=== PATIENT | male | born 1940 | race Caucasian/White ===

== ENCOUNTER 2016-08-14 22:13 | Emergency (ER) | payer MEDICARE, OTHER ==
--- NOTE | 2016-08-14 22:22 | EDM.PDOC ---
ED HPI GENERAL MEDICAL PROBLEM - General Chief Complaint: General Stated Complaint: dizziness Time Seen by Provider: 08/14/16 22:19 Source of Information: Reports: Patient - History of Present Illness INITIAL COMMENTS - FREE TEXT/NARRATIVE: HISTORY AND PHYSICAL: History of present illness: []Patient presents via EMS Patient relates he had an episode of dizziness while sitting at the table and then relates that he fell asleep. Thats THE extent of what the patient provides for history His arrived shortly after his arrival to the ER, she states he was taking a breathing treatment at the kitchen table she noted that the machine was running for some time so she went to check on him, he was sleeping at the kitchen table she awoke him he was tearful stating that their son doesn't love him. 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 He is been alert the entire time here in the ER and asymptomatic patient has been ambulatory here in the Er with no dizziness No fever nausea vomiting chills sweats no chest pain shortness breath headache palpitation bowel or urine symptoms no current skin as Review of systems: As per history of present illness and below otherwise all systems reviewed and negative. Past medical history: As per history of present illness and as reviewed below otherwise noncontributory. Surgical history: As per history of present illness and as reviewed below otherwise noncontributory. Social history: No reported history of drug or alcohol abuse. Family history: As per history of present illness and as reviewed below otherwise noncontributory. Physical exam: HEENT: Atraumatic, normocephalic, pupils reactive, negative for conjunctival pallor or scleral icterus, mucous membranes moist, throat clear, neck supple, nontender, trachea midline. Lungs: Clear to auscultation, breath sounds equal bilaterally, chest nontender. Heart: S1S2, regular, negative for clicks, rubs, or JVD. Abdomen: Soft, nondistended, nontender. Negative for masses or hepatosplenomegaly. Negative for costovertebral tenderness. Pelvis: Stable nontender. Genitourinary: Deferred. Rectal: Deferred. Extremities: Atraumatic, negative for cords or calf pain. Neurovascular unremarkable. Neuro: Awake, alert, oriented. Cranial nerves II through XII unremarkable. Cerebellum unremarkable. Motor and sensory unremarkable throughout. Exam nonfocal. Diagnostics: []Lab as below EKG Chest 1 view [employer] Therapeutics: []Normal saline 500 mL bolus Impression: []Dizziness-resolved home O2 non-compliance Chronic history of baseline Definitive disposition and diagnosis as appropriate pending reevaluation and review of above. Back Pain Score (Numeric/FACES): 4 - Related Data Allergies Allergy/AdvReac Type Severity Reaction Status Date / Time Penicillins Allergy Cannot Verified 08/15/13 13:06 Remember ED ROS GENERAL - Review of Systems Review Of Systems: ROS reveals no pertinent complaints other than HPI. ED EXAM, GENERAL - Physical Exam Exam: See Below Course - Vital Signs Last Recorded V/S: Last Vital Signs Temp 36.7 C 08/14/16 23:09 Pulse 102 H 08/14/16 23:09 Resp 18 08/14/16 23:09 BP 121/70 08/14/16 23:09 Pulse Ox 95 08/14/16 23:09 Orthostatic Blood Pressure [ 121/71 Supine] Orthostatic Blood Pressure [ 152/79 Standing] Orthostatic Blood Pressure [ 143/86 Sitting] - Orders/Labs/Meds Orders: Active Orders 24 hr Category Date Time Status EKG 12 Lead [EKG Documentation Completion] [RC] STAT Care 08/14/16 22:18 Active Orthostatic Vital Signs [RC] ASDIRECTED Care 08/14/16 22:22 Active Chest 1V Frontal [CR] Stat Exams 08/14/16 22:18 Taken Head wo Cont [CT] Stat Exams 08/14/16 22:36 Taken Sodium Chloride 0.9% [Normal Saline] 500 ml Med 08/14/16 22:30 Active IV STAT Medication Orders Sodium Chloride (Normal Saline) 500 mls @ 999 mls/hr IV STAT LOGAN Last Admin: 08/14/16 23:22 Dose: 999 mls/hr Labs: Laboratory Tests 08/14/16 08/14/16 08/14/16 Range/Units 22:30 22:30 22:30 WBC 8.86 (4.0-11.0) K/uL RBC 4.99 (4.50-5.90) M/uL Hgb 15.9 (13.0-17.0) g/dL Hct 45.9 (38.0-50.0) % MCV 92.0 (80.0-98.0) fL MCH 31.9 (27.0-32.0) pg MCHC 34.6 (31.0-37.0) g/dL RDW Std Deviation 47.1 (28.0-62.0) fl RDW Coeff of Shereen 14 (11.0-15.0) % Plt Count 244 (150-400) K/uL MPV 9.40 (7.40-12.00) fL Neut % (Auto) 61.8 (48.0-80.0) % Lymph % (Auto) 29.1 (16.0-40.0) % [place] % (Auto) 7.7 (0.0-15.0) % Eos % (Auto) 1.2 (0.0-7.0) % Baso % (Auto) 0.2 (0.0-1.5) % Neut # (Auto) 5.5 (1.4-5.7) K/uL Lymph # (Auto) 2.6 H (0.6-2.4) K/uL [place] # (Auto) 0.7 (0.0-0.8) K/uL Eos # (Auto) 0.1 (0.0-0.7) K/uL Baso # (Auto) 0.0 (0.0-0.1) K/uL Nucleated RBC % 0.0 /100WBC Nucleated RBCs # 0 K/uL INR 1.01 (0.86-1.11) Sodium 140 (136-146) mmol/L Potassium 3.6 (3.5-5.1) mmol/L Chloride 106 (98-110) mmol/L Carbon Dioxide 22 (21-31) mmol/L BUN 15 (6.0-23.0) mg/dL Creatinine 1.3 (0.6-1.5) mg/dL Est Cr Clr Drug Dosing 49.85 mL/min Estimated GFR (MDRD) 54.0 ml/min Glucose 103 (60-110) mg/dL Calcium 8.8 (8.8-10.8) mg/dL Total Bilirubin 0.5 (0.1-1.5) mg/dL AST 34 (5-40) IU/L ALT 43 (8-54) IU/L Alkaline Phosphatase 82 (40-150) Troponin I (0.0-0.29) NG/ML Total Protein 6.7 (6.0-8.0) g/dL Albumin 3.8 (3.4-4.8) g/dL Globulin 2.9 (2.0-3.5) g/dL Albumin/Globulin Ratio 1.3 (1.3-2.8) Urine Color Urine Appearance Urine pH (5.0-8.0) Ur Specific [place] (1.001-1.035) Urine Protein (NEGATIVE) mg/dL Urine Glucose (UA) (NEGATIVE) mg/dL Urine Ketones (NEGATIVE) mg/dL Urine Occult Blood (NEGATIVE) Urine Nitrite (NEGATIVE) Urine Bilirubin (NEGATIVE) Urine Urobilinogen (<2.0) EU/dL Ur Leukocyte Esterase (NEGATIVE) Urine RBC (0-2/HPF) Urine WBC (0-5/HPF) Ur Epithelial Cells (NONE-FEW) Urine Bacteria (NEGATIVE) Ethyl Alcohol mg/dL 08/14/16 08/14/16 08/14/16 Range/Units 22:30 22:30 23:15 WBC (4.0-11.0) K/uL RBC (4.50-5.90) M/uL Hgb (13.0-17.0) g/dL Hct (38.0-50.0) % MCV (80.0-98.0) fL MCH (27.0-32.0) pg MCHC (31.0-37.0) g/dL RDW Std Deviation (28.0-62.0) fl RDW Coeff of Shereen (11.0-15.0) % Plt Count (150-400) K/uL MPV (7.40-12.00) fL Neut % (Auto) (48.0-80.0) % Lymph % (Auto) (16.0-40.0) % [place] % (Auto) (0.0-15.0) % Eos % (Auto) (0.0-7.0) % Baso % (Auto) (0.0-1.5) % Neut # (Auto) (1.4-5.7) K/uL Lymph # (Auto) (0.6-2.4) K/uL [place] # (Auto) (0.0-0.8) K/uL Eos # (Auto) (0.0-0.7) K/uL Baso # (Auto) (0.0-0.1) K/uL Nucleated RBC % /100WBC Nucleated RBCs # K/uL INR (0.86-1.11) Sodium (136-146) mmol/L Potassium (3.5-5.1) mmol/L Chloride (98-110) mmol/L Carbon Dioxide (21-31) mmol/L BUN (6.0-23.0) mg/dL Creatinine (0.6-1.5) mg/dL Est Cr Clr Drug Dosing mL/min Estimated GFR (MDRD) ml/min Glucose (60-110) mg/dL Calcium (8.8-10.8) mg/dL Total Bilirubin (0.1-1.5) mg/dL AST (5-40) IU/L ALT (8-54) IU/L Alkaline Phosphatase (40-150) Troponin I < 0.10 (0.0-0.29) NG/ML Total Protein (6.0-8.0) g/dL Albumin (3.4-4.8) g/dL Globulin (2.0-3.5) g/dL Albumin/Globulin Ratio (1.3-2.8) Urine Color YELLOW Urine Appearance CLEAR Urine pH 6.0 (5.0-8.0) Ur Specific [place] 1.010 (1.001-1.035) Urine Protein NEGATIVE (NEGATIVE) mg/dL Urine Glucose (UA) NEGATIVE (NEGATIVE) mg/dL Urine Ketones TRACE H (NEGATIVE) mg/dL Urine Occult Blood NEGATIVE (NEGATIVE) Urine Nitrite NEGATIVE (NEGATIVE) Urine Bilirubin NEGATIVE (NEGATIVE) Urine Urobilinogen 0.2 (<2.0) EU/dL Ur Leukocyte Esterase NEGATIVE (NEGATIVE) Urine RBC 0-1 (0-2/HPF) Urine WBC 0-1 (0-5/HPF) Ur Epithelial Cells RARE (NONE-FEW) Urine Bacteria RARE (NEGATIVE) Ethyl Alcohol < 10.0 mg/dL Meds: Medications Generic Name Dose Route Start Last Admin Trade Name Freq PRN Reason Stop Dose Admin Sodium Chloride 500 mls @ 999 mls/hr 08/14/16 22:30 08/14/16 23:22 Normal Saline IV 999 mls/hr STAT LOGAN Administration Departure - Departure Time of Disposition: 23:50 Disposition: Home, Self-Care 01 Condition: Good Clinical Impression: Dizziness, COPD (chronic obstructive pulmonary disease) - Discharge Information Forms: ED Department Discharge Additional Instructions: strongly recommend compliance with home Oxygen return if symptoms persist or worsen follow up primary care 2 weeks , sooner as needed - My Orders Last 24 Hours: My Active Orders 08/14/16 22:18 EKG 12 Lead [EKG Documentation Completion] [RC] STAT Chest 1V Frontal [CR] Stat 08/14/16 22:22 Orthostatic Vital Signs [RC] ASDIRECTED 08/14/16 22:30 Sodium Chloride 0.9% [Normal Saline] 500 ml IV STAT 08/14/16 22:36 Head wo Cont [CT] Stat - Assessment/Plan Last 24 Hours: My Active Orders 08/14/16 22:18 EKG 12 Lead [EKG Documentation Completion] [RC] STAT Chest 1V Frontal [CR] Stat 08/14/16 22:22 Orthostatic Vital Signs [RC] ASDIRECTED 08/14/16 22:30 Sodium Chloride 0.9% [Normal Saline] 500 ml IV STAT 08/14/16 22:36 Head wo Cont [CT] Stat
[2016-08-14] MEDS ORDERED: Sodium Chloride 0.9% 500 ML IV SCH (22:30)
[2016-08-15 00:09] VITALS: BP 143/88
--- NOTE | 2016-08-15 13:38 | CT ---
EXAM DATE: 08/14/16 PATIENT'S AGE: 75 Patient: DORIAN MILLER Facility: [place], [place] Site . Site : 1940 Study: CT Head WO CONT [id number]/25/[id number] 11:00:32 PM Ordering Physician: William Lock Final Report: INDICATION: 75-year-old male, dizziness. TECHNIQUE: CT head without i.v. contrast. COMPARISON: None FINDINGS: Mild atrophy with widening of the lateral ventricles and sulci, appropriate for patient`s age. Scattered areas of periventricular and deep white matter low attenuation, indicating chronic microvascular disease. Arthur-white matter differentiation preserved. No hemorrhage or midline shift. No abnormal extra- axial fluid collection. Calvarium intact. Paranasal sinuses and mastoid air cells clear. IMPRESSION: 1. Mild atrophy and chronic microvascular disease. No acute intracranial abnormality. Dictated by Armani Anderson MD @ 08/14/2016 11:18:42 PM Dictated by: Armani Anderson MD @ 08/14/2016 23:19:08 (Electronic Signature) Report Signed by Proxy. [facility]
--- NOTE | 2016-08-15 13:39 | CR ---
EXAM DATE: 08/14/16 PATIENT'S AGE: 75 Patient: DORIAN MILLER Facility: [place], [place] Site . Site : 1940 Study: XRay Chest [id number]/25/2017 11:01:15 PM Ordering Physician: William Lock Final Report: INDICATION: Dizziness. TECHNIQUE: Chest radiograph 1 view COMPARISON: None FINDINGS: Cardiovascular and mediastinum: The heart silhouette is normal in size and morphology. The mediastinum is normal in appearance. Lungs and pleural spaces: Both lungs are unremarkable in appearance. No sign of pleural effusion seen. No pneumothorax is identified. Bones and soft tissues: Suture anchor at the left humeral head. No displaced rib fracture. IMPRESSION: 1. No acute abnormality. Dictated by Armani Anderson MD @ 08/14/2016 11:23:52 PM Dictated by: Armani Anderson MD @ 08/14/2016 23:23:57 (Electronic Signature) Report Signed by Proxy. [facility]
== END 2016-08-15 00:07 | disposition home or self-care (01) ==
LOC: MW.ED 22:13
DX: J44.9 Chronic obstructive pulmonary disease, unspecified (principal); R42 Dizziness and giddiness; Z88.0 Allergy status to penicillin
CPT/HCPCS: 36415; 70450; 71010; 80053; 81001; 84484; 85025; 85610; 93005; 96360; 99285; G0480; J7040; 99284

== ENCOUNTER 2019-11-17 14:51 | Inpatient (IN) | payer MEDICARE, OTHER ==
--- NOTE | 2019-11-17 15:17 | EDM.PDOC ---
ED HPI GENERAL MEDICAL PROBLEM - General Chief Complaint: Respiratory Problem Stated Complaint: COUGH/BODY ACHES/COPD Time Seen by Provider: 11/17/19 14:58 Source of Information: Reports: Patient History Limitations: Reports: No Limitations - History of Present Illness INITIAL COMMENTS - FREE TEXT/NARRATIVE: HISTORY AND PHYSICAL: History of present illness: Patient is a 79-year-old male who presents to the emergency room with complaints of shortness of breath, cough, and body aches. Patient states he has a history of COPD and does require oxygen at home. Over the past few days he feels increased shortness of breath and cough and is concerned that his "COPD is acting up". He states this is worse than usual so he figured he should come for evaluation. He is complaining of body aches, worse in his back. He does have intermittent tingling in bilateral fingertips which has resolved at this time. Patient denies any fever, chills, headache, change in vision, syncope or near syncope. Denies any chest pain, abdominal pain, nausea, vomiting, diarrhea, constipation or dysuria. Patient has been eating and drinking appropriately. Review of systems: As per history of present illness and below otherwise all systems reviewed and negative. Past medical history: As per history of present illness and as reviewed below otherwise noncontributory. Surgical history: As per history of present illness and as reviewed below otherwise noncontributory. Social history: See social history for further information Family history: As per history of present illness and as reviewed below otherwise noncontributory. Physical exam: General: Well developed and well nourished 79-year-old male. Alert and orientated x 3. Nontoxic in appearance and in no acute distress. Vital signs are stable and have been reviewed by me. Nursing notes were reviewed. HEENT: Atraumatic, normocephalic, pupils equal and reactive bilaterally, negative for conjunctival pallor or scleral icterus, mucous membranes moist, TMs normal bilaterally, throat clear, neck supple, nontender, trachea midline. No drooling or trismus noted. No meningeal signs. No hot potato voice noted. Lungs: Diminish throughout to auscultation, breath sounds equal bilaterally, chest nontender. Normal work of breathing, no accessory muscles used. Heart: S1S2, regular rate and rhythm without overt murmur Abdomen: Soft, nondistended, nontender. Negative for masses or hepatosplenomegaly. Negative for costovertebral tenderness. Skin: Intact, warm, dry. No lesions or rashes noted. Hematologic: No petechiae or purpra. Mucosa appropriate color and normal nail bed color and refill. Extremities: Atraumatic, moves all extremities per self without difficulty or deficits, negative for cords or calf pain. Neurovascular unremarkable. Neuro: Awake, alert, oriented. Cranial nerves II through XII unremarkable. Cerebellum unremarkable. Motor and sensory unremarkable throughout. Exam nonfocal. Psychiatric: Mood and affect are appropriate. Normal thought process. Answering questions appropriately. Notes: Patient is COVID positive. Chest x-ray shows no acute findings. D.Dimer is elevated; with do PE study. CT chest shows no findings of PE. Diffuse emphysema changes. Increased density in the right lung base, more focal fibrosis is infectious change. Otherwise nothing acute is appreciated. I have spoken with the patient/caregiver and discussed today's findings, in addition to providing specific details for plan of care. The patient has remained stable throughout the entire ED visit but due to his comorbidities and requiring oxygen we will admit him. Patient was made aware and is agreeable to plan of care. I did speak with Dr. Gordon, hospitalist on-call about this patient. He is agreeable to keeping this patient for further care and management. Diagnostics: CBC, CMP, Troponin, EKG, CXR, COVID, CT chest Therapeutics: Remdisevre, dexamethasone Impression: COVID 19 Plan: Inpatient admission to Med/Surg with telemetry Definitive disposition and diagnosis as appropriate pending reevaluation and review of above. - Related Data Allergies Allergy/AdvReac Type Severity Reaction Status Date / Time Penicillins Allergy Hives Verified 11/17/19 18:53 Home Meds: Home Meds Albuterol Sulfate 1 unit NEB BID 01/29/18 [History] Albuterol Sulfate [Proair Hfa] 2 puff INH ASDIRECTED 01/29/18 [History] Aspirin 81 mg PO DAILY 01/29/18 [History] Carboxymethylcellulose Sodium [Refresh Plus 0.5% Ophth Soln] 1 each .XX TID 01/20 [History] Cholecalciferol (Vitamin D3) [Vitamin D3] 2,000 unit PO DAILY 01/29/18 [History] Cyanocobalamin (Vitamin B-12) [B-12 Dots] 500 mcg PO DAILY 01/29/18 [History] Dorzolamide HCl/Timolol Maleat [Cosopt Eye Drops] 10 ml OP DAILY 01/29/18 [History] Fluticasone Propion/Salmeterol [Advair 250-50 Diskus] 1 puff INH BID 01/29/18 [History] Folic Acid 1 mg PO DAILY 01/29/18 [History] Furosemide [Lasix] 40 mg PO DAILY 01/29/18 [History] Latanoprost/Pf [Latanoprost 0.005% Eye Drop] 7.5 ml OP BEDTIME 01/29/18 [History] Loratadine/Pseudoephedrine [Loratadine-D 12 Hour Tablet] 1 tab PO DAILY 01/29/18 [History] Lutein 20 mg PO DAILY 01/29/18 [History] Multivitamin [Multi-Vitamin Daily] 1 each PO DAILY 01/29/18 [History] Naproxen Sodium [Aleve] 220 mg PO BID 01/29/18 [History] [place]-3 Fatty Acids/DHA/EPA [[place]-3 Softgel] 1 cap PO DAILY 01/29/18 [History] Potassium Chloride [Klor-Con M20] 20 meq PO DAILY 01/29/18 [History] Tiotropium [Spiriva HandiHaler] 18 mcg .XX DAILY 01/29/18 [History] Vitamin E 400 unit PO DAILY 01/29/18 [History] Zolpidem [Ambien] 10 mg PO BEDTIME 01/29/18 [History] guaiFENesin [Mucinex] 600 mg PO DAILY 01/29/18 [History] Past Medical History HEENT History: Reports: Cataract, Impaired Vision Respiratory History: Reports: COPD Genitourinary History: Reports: Prostate Disorder Musculoskeletal History: Reports: Back Pain, Chronic, Other (See Below) Other Musculoskeletal History: sciatica - Infectious Disease History Infectious Disease History: Reports: Chicken Pox, Measles - Past Surgical History HEENT Surgical History: Reports: Cataract Surgery GI Surgical History: Reports: Appendectomy Musculoskeletal Surgical History: Reports: Other (See Below) Other Musculoskeletal Surgeries/Procedures:: back surgery, left shoulder surgery Social & Family History - Caffeine Use Caffeine Use: Reports: Coffee ED ROS GENERAL - Review of Systems Review Of Systems: Comprehensive ROS is negative, except as noted in HPI. ED EXAM, GENERAL - Physical Exam Exam: See Below (See dictation) Course - Vital Signs Last Recorded V/S: Last Vital Signs Temp 98.8 F 11/17/19 18:54 Pulse 99 11/17/19 18:54 Resp 17 11/17/19 18:54 BP 119/71 11/17/19 18:54 Pulse Ox 95 11/17/19 18:54 - Orders/Labs/Meds Orders: Active Orders 24 hr Category Date Time Status CORONAVIRUS COVID-19 PCR PHL Stat Lab 11/17/19 16:15 Received Medication Orders Remdesivir 200 mg/ Sodium (Chloride) 250 mls @ 250 mls/hr IV ONETIME ONE Stop: 11/17/19 19:44 Labs: Laboratory Tests 11/17/19 11/17/19 11/17/19 Range/Units 15:35 15:35 15:35 WBC 4.52 (4.0-11.0) K/uL RBC 5.00 (4.50-5.90) M/uL Hgb 15.5 (13.0-17.0) g/dL Hct 46.6 (38.0-50.0) % MCV 93.2 (80.0-98.0) fL MCH 31.0 (27.0-32.0) pg MCHC 33.3 (31.0-37.0) g/dL RDW Std Deviation 47.3 (28.0-62.0) fl RDW Coeff of Shereen 14 (11.0-15.0) % Plt Count 168 (150-400) K/uL MPV 9.40 (7.40-12.00) fL Neut % (Auto) 67.4 (48.0-80.0) % Lymph % (Auto) 19.5 (16.0-40.0) % [place] % (Auto) 13.1 (0.0-15.0) % Eos % (Auto) 0.0 (0.0-7.0) % Baso % (Auto) 0.0 (0.0-1.5) % Neut # (Auto) 3.1 (1.4-5.7) K/uL Lymph # (Auto) 0.9 (0.6-2.4) K/uL [place] # (Auto) 0.6 (0.0-0.8) K/uL Eos # (Auto) 0.0 (0.0-0.7) K/uL Baso # (Auto) 0.0 (0.0-0.1) K/uL Nucleated RBC % 0.0 /100WBC Nucleated RBCs # 0 K/uL D-Dimer, Quantitative (0.0-0.50) mg/L FEU Lactate (0.20-2.00) mmol/L Sodium 134 L (136-148) mmol/L Potassium 4.1 (3.5-5.1) mmol/L Chloride 99 (98-107) mmol/L Carbon Dioxide 27.6 (21.0-32.0) mmol/L BUN 13 (7.0-18.0) mg/dL Creatinine 1.0 (0.8-1.3) mg/dL Est Cr Clr Drug Dosing 60.88 mL/min Estimated GFR (MDRD) > 60.0 ml/min Glucose 100 (74-106) mg/dL Calcium 8.3 L (8.5-10.1) mg/dL Total Bilirubin 0.4 (0.2-1.0) mg/dL AST 40 H (15-37) IU/L ALT 47 (14-63) IU/L Alkaline Phosphatase 73 (46-116) U/L Troponin I < 0.050 (0.000-0.056) ng/mL B-Natriuretic Peptide 34 (<100) PG/ML Total Protein 6.9 (6.4-8.2) g/dL Albumin 3.4 (3.4-5.0) g/dL Globulin 3.5 (2.6-4.0) g/dL Albumin/Globulin Ratio 1.0 (0.9-1.6) SARS CoV-2 RNA Rapid DWIGHT (NEGATIVE) 11/17/19 11/17/19 11/17/19 Range/Units 15:35 15:35 16:15 WBC (4.0-11.0) K/uL RBC (4.50-5.90) M/uL Hgb (13.0-17.0) g/dL Hct (38.0-50.0) % MCV (80.0-98.0) fL MCH (27.0-32.0) pg MCHC (31.0-37.0) g/dL RDW Std Deviation (28.0-62.0) fl RDW Coeff of Shereen (11.0-15.0) % Plt Count (150-400) K/uL MPV (7.40-12.00) fL Neut % (Auto) (48.0-80.0) % Lymph % (Auto) (16.0-40.0) % [place] % (Auto) (0.0-15.0) % Eos % (Auto) (0.0-7.0) % Baso % (Auto) (0.0-1.5) % Neut # (Auto) (1.4-5.7) K/uL Lymph # (Auto) (0.6-2.4) K/uL [place] # (Auto) (0.0-0.8) K/uL Eos # (Auto) (0.0-0.7) K/uL Baso # (Auto) (0.0-0.1) K/uL Nucleated RBC % /100WBC Nucleated RBCs # K/uL D-Dimer, Quantitative 0.61 H (0.0-0.50) mg/L FEU Lactate 0.9 (0.20-2.00) mmol/L Sodium (136-148) mmol/L Potassium (3.5-5.1) mmol/L Chloride (98-107) mmol/L Carbon Dioxide (21.0-32.0) mmol/L BUN (7.0-18.0) mg/dL Creatinine (0.8-1.3) mg/dL Est Cr Clr Drug Dosing mL/min Estimated GFR (MDRD) ml/min Glucose (74-106) mg/dL Calcium (8.5-10.1) mg/dL Total Bilirubin (0.2-1.0) mg/dL AST (15-37) IU/L ALT (14-63) IU/L Alkaline Phosphatase (46-116) U/L Troponin I (0.000-0.056) ng/mL B-Natriuretic Peptide (<100) PG/ML Total Protein (6.4-8.2) g/dL Albumin (3.4-5.0) g/dL Globulin (2.6-4.0) g/dL Albumin/Globulin Ratio (0.9-1.6) SARS CoV-2 RNA Rapid DWIGHT POSITIVE H (NEGATIVE) Meds: Medications Generic Name Dose Route Start Last Admin Trade Name Freq PRN Reason Stop Dose Admin Remdesivir 200 mg/ Sodium 250 mls @ 250 mls/hr 11/17/19 18:45 Chloride IV 11/17/19 19:44 ONETIME ONE Discontinued Medications Generic Name Dose Route Start Last Admin Trade Name Freq PRN Reason Stop Dose Admin Dexamethasone 6 mg 11/17/19 17:22 11/17/19 17:58 Dexamethasone PO 11/17/19 17:23 6 mg ONETIME ONE Administration Remdesivir 200 mg/ Sodium 250 mls @ 250 mls/hr 11/17/19 17:22 Chloride IV 11/17/19 17:23 ONETIME ONE Departure - Departure Time of Disposition: 19:31 Disposition: Admitted As Inpatient 67 Clinical Impression: COVID-19 - Discharge Information Sepsis Event Note (ED) - Focused Exam Vital Signs: Vital Signs Temp Pulse Resp BP Pulse Ox 11/17/19 16:30 94 21 H 119/69 96 11/17/19 15:22 103 H 98 11/17/19 15:16 97.4 F 17 125/60 - My Orders Last 24 Hours: My Active Orders 11/17/19 16:15 CORONAVIRUS COVID-19 PCR PHL Stat - Assessment/Plan Last 24 Hours: My Active Orders 11/17/19 16:15 CORONAVIRUS COVID-19 PCR PHL Stat
--- NOTE | 2019-11-17 16:05 | CR ---
Chest: Portable view of the chest was obtained. Comparison: Prior chest x-ray of 02/28/18. Increased density is noted within both inferior lungs. This is an interval change from prior study. Uncertain if this represents areas of viral pneumonia or atelectasis. Upper lungs are clear. Heart size and mediastinum are normal. Bony structures are grossly intact. Previous left shoulder surgery is noted. Impression: 1. Increased density within the low lung bases as noted above. Please correlate with the patient's Covid status. 2. Nothing acute is otherwise seen. Diagnostic code #3 This report was dictated in MDT
[2019-11-17 16:34] LABS: BLOOD UREA NITROGEN,BUN 13 mg/dL (7.0-18.0); CARBON DIOXIDE,CO2 27.6 mmol/L (21.0-32.0); CHLORIDE,CL 99 mmol/L (98-107); GLUCOSE RANDOM 100 mg/dL (74-106); POTASSIUM,K 4.1 mmol/L (3.5-5.1); SODIUM,NA 134 mmol/L (136-148)
[2019-11-17] MEDS ORDERED: Dexamethasone 4 MG Tab PO ONE (17:22)
--- NOTE | 2019-11-17 18:53 | CT ---
CT chest Technique: Multiple axial sections through the chest were obtained. Intravenous contrast was utilized. Study performed as a pulmonary angiogram protocol. Comparison: Recent chest x-ray performed on the same day (3:44 PM). Findings: Pulmonary arteries are not optimally opacified. No filling defects are to indicate pulmonary embolism within the main or segmental branches. Smaller subsegmental pulmonary emboli could be missed. Aorta shows atherosclerotic calcification without aneurysm. Fairly prominent atherosclerotic calcification is noted within coronary arteries. No pericardial thickening is seen. Cyst is noted within the right lobe of the liver measuring 1.8 cm. Lung window settings were reviewed. Diffuse emphysematous changes are present throughout both lungs. Mild increased density within the right lung base is seen. Findings could represent infectious change as well as more focal fibrosis. No other acute parenchymal change is suggested within either side of the chest. Bone window settings were reviewed which show scattered degenerative endplate spurring within the spine. Scattered disc space narrowing is noted. No acute osseous finding is appreciated. Impression: 1. No findings of pulmonary embolism within the main or segmental branches. Smaller subsegmental pulmonary emboli could be missed. 2. Diffuse emphysematous change. 3. Increased density within the right lung base which may represent more focal fibrosis versus infectious change. 4. No other acute abnormality is appreciated. Other findings believed to be incidental as noted above. Diagnostic code #3 This report was dictated in MDT
[2019-11-17] MEDS ORDERED: Albuterol 6.7 GM Inhaler INH PRN (23:02)
--- NOTE | 2019-11-17 23:40 | PCM.HP.2 ---
H&P History of Present Illness - General Date of Service: 11/17/19 Admit Problem/Dx: Admission Diagnosis/Problem Admission Diagnosis/Problem Viral respiratory infection - History of Present Illness Initial Comments - Free Text/Narative: 79 yo male with pmh of oxygen dependent COPD who presents with several day hi story of cough and shortness of breath. Patient's x-ray showed bibasilar infiltrate. He was found to be COVID positive. - Related Data Allergies/Adverse Reactions: Allergies Allergy/AdvReac Type Severity Reaction Status Date / Time Penicillins Allergy Hives Verified 11/17/19 20:21 Home Medications: Home Meds Carboxymethylcellulose Sodium [Refresh Plus 0.5% Ophth Soln] 1 drop EYEBOTH TID 01/29/18 [History] Cholecalciferol (Vitamin D3) [Vitamin D3] 2,000 unit PO DAILY 01/29/18 [History] Cyanocobalamin (Vitamin B-12) [B-12 Dots] 500 mcg PO DAILY 01/29/18 [History] Dorzolamide HCl/Timolol Maleat [Cosopt Eye Drops] 1 drop EYEBOTH DAILY 01/29/18 [History] Fluticasone Propion/Salmeterol [Advair 250-50 Diskus] 1 puff INH BID 01/29/18 [History] Furosemide [Lasix] 40 mg PO DAILY 01/29/18 [History] Latanoprost/Pf [Latanoprost 0.005% Eye Drop] 1 drop EYEBOTH BEDTIME 01/29/18 [History] Loratadine/Pseudoephedrine [Loratadine-D 12 Hour Tablet] 1 tab PO DAILY 01/29/18 [History] Multivitamin [Multi-Vitamin Daily] 1 each PO DAILY 01/29/18 [History] Naproxen Sodium [Aleve] 220 mg PO BID PRN 01/29/18 [History] Potassium Chloride [Klor-Con M20] 20 meq PO DAILY 01/29/18 [History] RX: Albuterol Sulfate 1 unit NEB TID 01/29/18 [History] RX: Albuterol Sulfate [Proair Hfa] 2 puff INH Q4HR PRN 01/29/18 [History] RX: Aspirin 81 mg PO DAILY 01/29/18 [History] RX: Folic Acid 1 mg PO DAILY 01/29/18 [History] RX: Lutein 20 mg PO DAILY 01/29/18 [History] RX: [place]-3 Fatty Acids/DHA/EPA [[place]vega-3 Softgel] 1 cap PO DAILY 01/29/18 [History] RX: Vitamin E 400 unit PO DAILY 01/29/18 [History] Tiotropium [Spiriva HandiHaler] 18 mcg .XX DAILY 01/29/18 [History] Zolpidem [Ambien] 10 mg PO BEDTIME 01/29/18 [History] guaiFENesin [Mucinex] 600 mg PO DAILY 01/29/18 [History] Aloe Vera/Sodium Chloride [[place] Saline Nasal Gel] 1 applic NASBOTH TID 11/17/19 [History] RX: Finasteride [Proscar] 5 mg PO DAILY 11/18/19 [History] RX: Tamsulosin HCl 0.4 mg PO DAILY 11/18/19 [History] Roflumilast [Daliresp] 500 mcg PO DAILY 11/18/19 [History] Past Medical History HEENT History: Reports: Cataract, Glaucoma, Impaired Vision, Other (See Below) Other HEENT History: Glaucoma left eye Respiratory History: Reports: COPD Genitourinary History: Reports: Prostate Disorder Musculoskeletal History: Reports: Back Pain, Chronic, Other (See Below) Other Musculoskeletal History: sciatica Hematologic History: Reports: None Immunologic History: Reports: None Oncologic (Cancer) History: Reports: None - Infectious Disease History Infectious Disease History: Reports: Chicken Pox, Measles - Past Surgical History HEENT Surgical History: Reports: Cataract Surgery GI Surgical History: Reports: Appendectomy Musculoskeletal Surgical History: Reports: Other (See Below) Other Musculoskeletal Surgeries/Procedures:: back surgery, left shoulder surgery Social & Family History - Family History Family Medical History: Noncontributory - Tobacco Use Smoking Status *Q: Former Smoker Used Tobacco, but Quit: Yes Month/Year Tobacco Last Used: 2003 - Caffeine Use Caffeine Use: Reports: Coffee - Recreational Drug Use Recreational Drug Use: No H&P Review of Systems - Review of Systems: Review Of Systems: Comprehensive ROS is negative, except as noted in HPI. Exam - Exam Exam: See Below - Vital Signs Vital Signs: Last Vital Signs Temp 37.1 C 11/17/19 18:54 Pulse 99 11/17/19 18:54 Resp 17 11/17/19 18:54 BP 119/71 11/17/19 18:54 Pulse Ox 95 11/17/19 18:54 Weight: 97.613 kg - Exam General: Alert, Oriented HEENT: Mucosa Moist & [place] Neck: Supple Lungs: Clear to Auscultation, Normal Respiratory Effort Cardiovascular: Regular Rate, Regular Rhythm GI/Abdominal Exam: Soft, Non-Tender Extremities: Non-Tender, No Pedal Edema - Patient Data Lab Results Last 24 hrs: Laboratory Results - last 24 hr 11/17/19 11/17/19 11/17/19 Range/Units 15:35 15:35 15:35 WBC 4.52 (4.0-11.0) K/uL RBC 5.00 (4.50-5.90) M/uL Hgb 15.5 (13.0-17.0) g/dL Hct 46.6 (38.0-50.0) % MCV 93.2 (80.0-98.0) fL MCH 31.0 (27.0-32.0) pg MCHC 33.3 (31.0-37.0) g/dL RDW Std Deviation 47.3 (28.0-62.0) fl RDW Coeff of Shereen 14 (11.0-15.0) % Plt Count 168 (150-400) K/uL MPV 9.40 (7.40-12.00) fL Neut % (Auto) 67.4 (48.0-80.0) % Lymph % (Auto) 19.5 (16.0-40.0) % [place] % (Auto) 13.1 (0.0-15.0) % Eos % (Auto) 0.0 (0.0-7.0) % Baso % (Auto) 0.0 (0.0-1.5) % Neut # (Auto) 3.1 (1.4-5.7) K/uL Lymph # (Auto) 0.9 (0.6-2.4) K/uL [place] # (Auto) 0.6 (0.0-0.8) K/uL Eos # (Auto) 0.0 (0.0-0.7) K/uL Baso # (Auto) 0.0 (0.0-0.1) K/uL Nucleated RBC % 0.0 /100WBC Nucleated RBCs # 0 K/uL D-Dimer, Quantitative (0.0-0.50) mg/L FEU Lactate (0.20-2.00) mmol/L Sodium 134 L (136-148) mmol/L Potassium 4.1 (3.5-5.1) mmol/L Chloride 99 (98-107) mmol/L Carbon Dioxide 27.6 (21.0-32.0) mmol/L BUN 13 (7.0-18.0) mg/dL Creatinine 1.0 (0.8-1.3) mg/dL Est Cr Clr Drug Dosing 60.88 mL/min Estimated GFR (MDRD) > 60.0 ml/min Glucose 100 (74-106) mg/dL Calcium 8.3 L (8.5-10.1) mg/dL Total Bilirubin 0.4 (0.2-1.0) mg/dL AST 40 H (15-37) IU/L ALT 47 (14-63) IU/L Alkaline Phosphatase 73 (46-116) U/L Troponin I < 0.050 (0.000-0.056) ng/mL B-Natriuretic Peptide 34 (<100) PG/ML Total Protein 6.9 (6.4-8.2) g/dL Albumin 3.4 (3.4-5.0) g/dL Globulin 3.5 (2.6-4.0) g/dL Albumin/Globulin Ratio 1.0 (0.9-1.6) SARS CoV-2 RNA Rapid DWIGHT (NEGATIVE) 11/17/19 11/17/19 11/17/19 Range/Units 15:35 15:35 16:15 WBC (4.0-11.0) K/uL RBC (4.50-5.90) M/uL Hgb (13.0-17.0) g/dL Hct (38.0-50.0) % MCV (80.0-98.0) fL MCH (27.0-32.0) pg MCHC (31.0-37.0) g/dL RDW Std Deviation (28.0-62.0) fl RDW Coeff of Shereen (11.0-15.0) % Plt Count (150-400) K/uL MPV (7.40-12.00) fL Neut % (Auto) (48.0-80.0) % Lymph % (Auto) (16.0-40.0) % [place] % (Auto) (0.0-15.0) % Eos % (Auto) (0.0-7.0) % Baso % (Auto) (0.0-1.5) % Neut # (Auto) (1.4-5.7) K/uL Lymph # (Auto) (0.6-2.4) K/uL [place] # (Auto) (0.0-0.8) K/uL Eos # (Auto) (0.0-0.7) K/uL Baso # (Auto) (0.0-0.1) K/uL Nucleated RBC % /100WBC Nucleated RBCs # K/uL D-Dimer, Quantitative 0.61 H (0.0-0.50) mg/L FEU Lactate 0.9 (0.20-2.00) mmol/L Sodium (136-148) mmol/L Potassium (3.5-5.1) mmol/L Chloride (98-107) mmol/L Carbon Dioxide (21.0-32.0) mmol/L BUN (7.0-18.0) mg/dL Creatinine (0.8-1.3) mg/dL Est Cr Clr Drug Dosing mL/min Estimated GFR (MDRD) ml/min Glucose (74-106) mg/dL Calcium (8.5-10.1) mg/dL Total Bilirubin (0.2-1.0) mg/dL AST (15-37) IU/L ALT (14-63) IU/L Alkaline Phosphatase (46-116) U/L Troponin I (0.000-0.056) ng/mL B-Natriuretic Peptide (<100) PG/ML Total Protein (6.4-8.2) g/dL Albumin (3.4-5.0) g/dL Globulin (2.6-4.0) g/dL Albumin/Globulin Ratio (0.9-1.6) SARS CoV-2 RNA Rapid DWIGHT POSITIVE H (NEGATIVE) Result Diagrams: 11/18/19 05:15 11/18/19 05:15 Sepsis Event Note - Evaluation Sepsis Screening Result: No Definite Risk - Focused Exam Vital Signs: Vital Signs Temp Pulse Resp BP Pulse Ox 11/17/19 18:54 37.1 C 99 17 119/71 95 11/17/19 16:30 94 21 H 119/69 96 11/17/19 15:22 103 H 98 11/17/19 15:16 36.3 C 17 125/60 Problem List Initiated/Reviewed/Updated: Yes Orders Last 24hrs: Active Orders 24 hr Category Date Time Status Admission Status [Patient Status] [ADT] Stat ADT 11/17/19 17:23 Active Antiembolic Devices [RC] PER UNIT ROUTINE Care 11/17/19 23:27 Active Oxygen Therapy [RC] PRN Care 11/17/19 23:27 Active RT Aerosol Therapy [RC] ASDIRECTED Care 11/17/19 23:26 Active RT Post Treatment Assessment [RC] Click to Edit Care 11/17/19 23:03 Active RT Pre-Treatment Assessment [RC] Click to Edit Care 11/17/19 23:03 Active Telemetry Monitoring [Cardiac Monitoring] [RC] Q8H Care 11/17/19 18:43 Active Up ad Eva [RC] ASDIRECTED Care 11/17/19 23:27 Active VTE/DVT Education [RC] PER UNIT ROUTINE Care 11/17/19 23:27 Active Vital Signs [RC] Q4H Care 11/17/19 23:27 Active Regular Diet [DIET] Diet 11/17/19 Breakfast Active CBC WITH AUTO DIFF [HEME] AM Lab 11/18/19 05:11 Ordered CBC WITH AUTO DIFF [HEME] AM Lab 11/19/19 05:11 Ordered CBC WITH AUTO DIFF [HEME] AM Lab 11/20/19 05:11 Ordered CBC WITH AUTO DIFF [HEME] AM Lab 11/21/19 05:11 Ordered COMPREHENSIVE METABOLIC PN,CMP [CHEM] AM Lab 11/18/19 05:11 Ordered COMPREHENSIVE METABOLIC PN,CMP [CHEM] AM Lab 11/19/19 05:11 Ordered COMPREHENSIVE METABOLIC PN,CMP [CHEM] AM Lab 11/20/19 05:11 Ordered COMPREHENSIVE METABOLIC PN,CMP [CHEM] AM Lab 11/21/19 05:11 Ordered CORONAVIRUS COVID-19 PCR PHL Stat Lab 11/17/19 16:15 Received Albuterol [Proventil HFA] Med 11/17/19 23:02 Active 0 gm INH Q4HR PRN Albuterol [Proventil Neb Soln] Med 11/18/19 06:00 Ordered DOSE mg NEB TID Carboxymethylcellulose Sodium [Refresh Plus 0.5%] Med 11/18/19 06:00 Pending 1 each .XX TID Cholecalciferol (Vitamin D3) [Vitamin D3] Med 11/18/19 09:00 Ordered 2,000 unit PO DAILY Cyanocobalamin (Vitamin B12) [Vitamin B12] Med 11/18/19 09:00 Active 500 mcg PO DAILY Dorzolamide/Timolol [Cosopt 2%-0.5% Ophth Soln] Med 11/18/19 09:00 Pending 10 ml EYEBOTH DAILY Enoxaparin [Lovenox] Med 11/17/19 23:30 Ordered 40 mg SUBCUT Q24H Fluticasone/Salmeterol [Advair Diskus 250-50] Med 11/18/19 09:00 Active 0 puff INH BID Latanoprost/Pf [Latanoprost 0.005% Eye Drop] Med 11/18/19 21:00 Pending 7.5 ml OP BEDTIME Naproxen Sodium Med 11/18/19 09:00 Active 220 mg PO BID Remdesivir (Eua) [Remdesivir (EUA)] 100 mg Med 11/18/19 23:30 Ordered Sodium Chloride 0.9% [Normal Saline] 100 ml IV Q24H Tiotropium [Spiriva HandiHaler] Med 11/18/19 09:00 Ordered 18 mcg .XX DAILY Zolpidem Med 11/18/19 21:00 Ordered 10 mg PO BEDTIME dexAMETHasone Med 11/18/19 09:00 Ordered 6 mg PO DAILY guaiFENesin [Mucinex] Med 11/18/19 09:00 Active 600 mg PO DAILY Sequential Compression Device [OM.PC] Per Unit Routine Oth 11/17/19 23:27 Ordered Resuscitation Status Routine Resus Stat 11/17/19 23:27 Ordered Medication Orders Albuterol (Proventil Hfa) 0 gm INH Q4HR PRN PRN Reason: Shortness of Breath Albuterol (Proventil Neb Soln) mg NEB TID LOGAN Artificial Tears (Refresh Plus 0.5%) 1 each .XX TID LOGAN Cyanocobalamin (Vitamin B12) 500 mcg PO DAILY LOGAN Dorzolamide/Timolol (Cosopt 2%-0.5% Ophth Soln) 10 ml EYEBOTH DAILY LOGAN Guaifenesin (Mucinex) 600 mg PO DAILY LOGAN Non-Formulary Medication (Latanoprost/Pf [Latanoprost 0.005% Eye Drop]) 7.5 ml OP BEDTIME LOGAN Non-Formulary Medication (Naproxen Sodium [Aleve]) 220 mg PO BID LOGAN Non-Formulary Medication (Cholecalciferol (Vitamin D3) [Vitamin D3]) 2,000 unit PO DAILY LOGAN Non-Formulary Medication (Zolpidem) 10 mg PO BEDTIME LOGAN Fluticasone/Salmeterol (Advair Diskus 250-50) 0 puff INH BID LOGAN Tiotropium [place] (Spiriva Handihaler) 18 mcg .XX DAILY LOGAN Assessment/Plan Comment:: 79 yo male with COPD admitted for COVID. We will treat with Dexamethason and Remdesivir. Patient has been given fact sheet on Remdesivir and has been informed of the side effects and agrees to treatment.
--- NOTE | 2019-11-17 23:54 | PCM.HP.2 ---
H&P History of Present Illness - General Admit Problem/Dx: Admission Diagnosis/Problem Admission Diagnosis/Problem Viral respiratory infection - Related Data Allergies/Adverse Reactions: Allergies Allergy/AdvReac Type Severity Reaction Status Date / Time Penicillins Allergy Hives Verified 11/17/19 20:21 Home Medications: Home Meds Albuterol Sulfate 1 unit NEB TID 01/29/18 [History] Albuterol Sulfate [Proair Hfa] 2 puff INH Q4HR PRN 01/29/18 [History] Aspirin 81 mg PO DAILY 01/29/18 [History] Carboxymethylcellulose Sodium [Refresh Plus 0.5% Ophth Soln] 1 each .XX TID 01/29/18 [History] Cholecalciferol (Vitamin D3) [Vitamin D3] 2,000 unit PO DAILY 01/29/18 [History] Cyanocobalamin (Vitamin B-12) [B-12 Dots] 500 mcg PO DAILY 01/29/18 [History] Dorzolamide HCl/Timolol Maleat [Cosopt Eye Drops] 10 ml OP DAILY 01/29/18 [History] Fluticasone Propion/Salmeterol [Advair 250-50 Diskus] 1 puff INH BID 01/29/18 [History] Folic Acid 1 mg PO DAILY 01/29/18 [History] Furosemide [Lasix] 40 mg PO DAILY 01/29/18 [History] Latanoprost/Pf [Latanoprost 0.005% Eye Drop] 7.5 ml OP BEDTIME 01/29/18 [History] Loratadine/Pseudoephedrine [Loratadine-D 12 Hour Tablet] 1 tab PO DAILY 01/29/18 [History] Lutein 20 mg PO DAILY 01/29/18 [History] Multivitamin [Multi-Vitamin Daily] 1 each PO DAILY 01/29/18 [History] Naproxen Sodium [Aleve] 220 mg PO BID 01/29/18 [History] [place]-3 Fatty Acids/DHA/EPA [Ovega-3 Softgel] 1 cap PO DAILY 01/29/18 [History] Potassium Chloride [Klor-Con M20] 20 meq PO DAILY 01/29/18 [History] Tiotropium [Spiriva HandiHaler] 18 mcg .XX DAILY 01/29/18 [History] Vitamin E 400 unit PO DAILY 01/29/18 [History] Zolpidem [Ambien] 10 mg PO BEDTIME 01/29/18 [History] guaiFENesin [Mucinex] 600 mg PO DAILY 01/29/18 [History] Aloe Vera/Sodium Chloride [[place] Saline Nasal Gel] 1 applic NASBOTH TID 11/17/19 [History] Past Medical History HEENT History: Reports: Cataract, Glaucoma, Impaired Vision, Other (See Below) Other HEENT History: Glaucoma left eye Respiratory History: Reports: COPD Genitourinary History: Reports: Prostate Disorder Musculoskeletal History: Reports: Back Pain, Chronic, Other (See Below) Other Musculoskeletal History: sciatica Hematologic History: Reports: None Immunologic History: Reports: None Oncologic (Cancer) History: Reports: None - Infectious Disease History Infectious Disease History: Reports: Chicken Pox, Measles - Past Surgical History HEENT Surgical History: Reports: Cataract Surgery GI Surgical History: Reports: Appendectomy Musculoskeletal Surgical History: Reports: Other (See Below) Other Musculoskeletal Surgeries/Procedures:: back surgery, left shoulder surgery Social & Family History - Family History Family Medical History: Noncontributory - Tobacco Use Smoking Status *Q: Former Smoker Used Tobacco, but Quit: Yes Month/Year Tobacco Last Used: 2003 - Caffeine Use Caffeine Use: Reports: Coffee - Recreational Drug Use Recreational Drug Use: No Exam - Vital Signs Vital Signs: Last Vital Signs Temp 37.1 C 11/17/19 18:54 Pulse 99 11/17/19 18:54 Resp 17 11/17/19 18:54 BP 119/71 11/17/19 18:54 Pulse Ox 95 11/17/19 18:54 Weight: 97.613 kg - Patient Data Lab Results Last 24 hrs: Laboratory Results - last 24 hr 11/17/19 11/17/19 11/17/19 Range/Units 15:35 15:35 15:35 WBC 4.52 (4.0-11.0) K/uL RBC 5.00 (4.50-5.90) M/uL Hgb 15.5 (13.0-17.0) g/dL Hct 46.6 (38.0-50.0) % MCV 93.2 (80.0-98.0) fL MCH 31.0 (27.0-32.0) pg MCHC 33.3 (31.0-37.0) g/dL RDW Std Deviation 47.3 (28.0-62.0) fl RDW Coeff of Shereen 14 (11.0-15.0) % Plt Count 168 (150-400) K/uL MPV 9.40 (7.40-12.00) fL Neut % (Auto) 67.4 (48.0-80.0) % Lymph % (Auto) 19.5 (16.0-40.0) % [place] % (Auto) 13.1 (0.0-15.0) % Eos % (Auto) 0.0 (0.0-7.0) % Baso % (Auto) 0.0 (0.0-1.5) % Neut # (Auto) 3.1 (1.4-5.7) K/uL Lymph # (Auto) 0.9 (0.6-2.4) K/uL [place] # (Auto) 0.6 (0.0-0.8) K/uL Eos # (Auto) 0.0 (0.0-0.7) K/uL Baso # (Auto) 0.0 (0.0-0.1) K/uL Nucleated RBC % 0.0 /100WBC Nucleated RBCs # 0 K/uL D-Dimer, Quantitative (0.0-0.50) mg/L FEU Lactate (0.20-2.00) mmol/L Sodium 134 L (136-148) mmol/L Potassium 4.1 (3.5-5.1) mmol/L Chloride 99 (98-107) mmol/L Carbon Dioxide 27.6 (21.0-32.0) mmol/L BUN 13 (7.0-18.0) mg/dL Creatinine 1.0 (0.8-1.3) mg/dL Est Cr Clr Drug Dosing 60.88 mL/min Estimated GFR (MDRD) > 60.0 ml/min Glucose 100 (74-106) mg/dL Calcium 8.3 L (8.5-10.1) mg/dL Total Bilirubin 0.4 (0.2-1.0) mg/dL AST 40 H (15-37) IU/L ALT 47 (14-63) IU/L Alkaline Phosphatase 73 (46-116) U/L Troponin I < 0.050 (0.000-0.056) ng/mL B-Natriuretic Peptide 34 (<100) PG/ML Total Protein 6.9 (6.4-8.2) g/dL Albumin 3.4 (3.4-5.0) g/dL Globulin 3.5 (2.6-4.0) g/dL Albumin/Globulin Ratio 1.0 (0.9-1.6) SARS CoV-2 RNA Rapid DWIGHT (NEGATIVE) 11/17/19 11/17/19 11/17/19 Range/Units 15:35 15:35 16:15 WBC (4.0-11.0) K/uL RBC (4.50-5.90) M/uL Hgb (13.0-17.0) g/dL Hct (38.0-50.0) % MCV (80.0-98.0) fL MCH (27.0-32.0) pg MCHC (31.0-37.0) g/dL RDW Std Deviation (28.0-62.0) fl RDW Coeff of Shereen (11.0-15.0) % Plt Count (150-400) K/uL MPV (7.40-12.00) fL Neut % (Auto) (48.0-80.0) % Lymph % (Auto) (16.0-40.0) % [place] % (Auto) (0.0-15.0) % Eos % (Auto) (0.0-7.0) % Baso % (Auto) (0.0-1.5) % Neut # (Auto) (1.4-5.7) K/uL Lymph # (Auto) (0.6-2.4) K/uL [place] # (Auto) (0.0-0.8) K/uL Eos # (Auto) (0.0-0.7) K/uL Baso # (Auto) (0.0-0.1) K/uL Nucleated RBC % /100WBC Nucleated RBCs # K/uL D-Dimer, Quantitative 0.61 H (0.0-0.50) mg/L FEU Lactate 0.9 (0.20-2.00) mmol/L Sodium (136-148) mmol/L Potassium (3.5-5.1) mmol/L Chloride (98-107) mmol/L Carbon Dioxide (21.0-32.0) mmol/L BUN (7.0-18.0) mg/dL Creatinine (0.8-1.3) mg/dL Est Cr Clr Drug Dosing mL/min Estimated GFR (MDRD) ml/min Glucose (74-106) mg/dL Calcium (8.5-10.1) mg/dL Total Bilirubin (0.2-1.0) mg/dL AST (15-37) IU/L ALT (14-63) IU/L Alkaline Phosphatase (46-116) U/L Troponin I (0.000-0.056) ng/mL B-Natriuretic Peptide (<100) PG/ML Total Protein (6.4-8.2) g/dL Albumin (3.4-5.0) g/dL Globulin (2.6-4.0) g/dL Albumin/Globulin Ratio (0.9-1.6) SARS CoV-2 RNA Rapid DWIGHT POSITIVE H (NEGATIVE) Result Diagrams: 11/17/19 15:35 11/17/19 15:35 Sepsis Event Note - Evaluation Sepsis Screening Result: No Definite Risk - Focused Exam Vital Signs: Vital Signs Temp Pulse Resp BP Pulse Ox 11/17/19 18:54 37.1 C 99 17 119/71 95 11/17/19 16:30 94 21 H 119/69 96 11/17/19 15:22 103 H 98 11/17/19 15:16 36.3 C 17 125/60 Orders Last 24hrs: Active Orders 24 hr Category Date Time Status Admission Status [Patient Status] [ADT] Stat ADT 11/17/19 17:23 Active Antiembolic Devices [RC] PER UNIT ROUTINE Care 11/17/19 23:27 Active Oxygen Therapy [RC] PRN Care 11/17/19 23:27 Active RT Aerosol Therapy [RC] ASDIRECTED Care 11/17/19 23:26 Active RT Post Treatment Assessment [RC] Click to Edit Care 11/17/19 23:03 Ordered RT Pre-Treatment Assessment [RC] Click to Edit Care 11/17/19 23:03 Ordered Telemetry Monitoring [Cardiac Monitoring] [RC] Q8H Care 11/17/19 18:43 Active Up ad Eva [RC] ASDIRECTED Care 11/17/19 23:27 Active VTE/DVT Education [RC] PER UNIT ROUTINE Care 11/17/19 23:27 Active Vital Signs [RC] Q4H Care 11/17/19 23:27 Active Regular Diet [DIET] Diet 11/17/19 Breakfast Active CBC WITH AUTO DIFF [HEME] AM Lab 11/18/19 05:11 Ordered CBC WITH AUTO DIFF [HEME] AM Lab 11/19/19 05:11 Ordered CBC WITH AUTO DIFF [HEME] AM Lab 11/20/19 05:11 Ordered CBC WITH AUTO DIFF [HEME] AM Lab 11/21/19 05:11 Ordered COMPREHENSIVE METABOLIC PN,CMP [CHEM] AM Lab 11/18/19 05:11 Ordered COMPREHENSIVE METABOLIC PN,CMP [CHEM] AM Lab 11/19/19 05:11 Ordered COMPREHENSIVE METABOLIC PN,CMP [CHEM] AM Lab 11/20/19 05:11 Ordered COMPREHENSIVE METABOLIC PN,CMP [CHEM] AM Lab 11/21/19 05:11 Ordered CORONAVIRUS COVID-19 PCR PHL Stat Lab 11/17/19 16:15 Received Albuterol [Proventil HFA] Med 11/17/19 23:02 Ordered 2 puff INH Q4HR PRN Albuterol [Proventil Neb Soln] Med 11/18/19 06:00 Active 2.5 mg NEB TIDRT Carboxymethylcellulose Sodium [Refresh Plus 0.5%] Med 11/18/19 06:00 Ordered 1 each .XX TID Cholecalciferol (Vitamin D3) [Vitamin D3] Med 11/18/19 09:00 Ordered 2,000 unit PO DAILY Cyanocobalamin (Vitamin B12) [Vitamin B12] Med 11/18/19 09:00 Ordered 500 mcg PO DAILY Dorzolamide/Timolol [Cosopt 2%-0.5% Ophth Soln] Med 11/18/19 09:00 Ordered 10 ml EYEBOTH DAILY Enoxaparin [Lovenox] Med 11/17/19 23:00 Active 40 mg SUBCUT Q24H Fluticasone/Salmeterol [Advair Diskus 250-50] Med 11/18/19 09:00 Ordered 1 puff INH BID Latanoprost/Pf [Latanoprost 0.005% Eye Drop] Med 11/18/19 21:00 Ordered 7.5 ml OP BEDTIME Naproxen Sodium [Aleve] Med 11/18/19 09:00 Ordered 220 mg PO BID Remdesivir (Eua) [Remdesivir (EUA)] 100 mg Med 11/18/19 23:00 Active Sodium Chloride 0.9% [Normal Saline] 100 ml IV Q24H Remdesivir (Eua) [Remdesivir (EUA)] 200 mg Med 11/17/19 23:30 Active Sodium Chloride 0.9% [Normal Saline] 250 ml IV ONETIME Tiotropium [Spiriva HandiHaler] Med 11/18/19 09:00 Ordered 18 mcg .XX DAILY Zaleplon [Sonata] Med 11/18/19 21:00 Active 5 mg PO BEDTIME dexAMETHasone Med 11/18/19 09:00 Active 6 mg PO DAILY guaiFENesin [Mucinex] Med 11/18/19 09:00 Ordered 600 mg PO DAILY Sequential Compression Device [OM.PC] Per Unit Routine Oth 11/17/19 23:27 Ordered Resuscitation Status Routine Resus Stat 11/17/19 23:27 Ordered Medication Orders Albuterol (Proventil Hfa) 0 gm INH Q4HR PRN PRN Reason: Shortness of Breath Albuterol (Proventil Neb Soln) 2.5 mg NEB TIDRT LOGAN Artificial Tears (Refresh Plus 0.5%) 1 each .XX TID LOGAN Cholecalciferol (Vitamin D3) 50 mcg PO DAILY LOGAN Cyanocobalamin (Vitamin B12) 500 mcg PO DAILY LOGAN Dexamethasone (Dexamethasone) 6 mg PO DAILY LOGAN Dorzolamide/Timolol (Cosopt 2%-0.5% Ophth Soln) 10 ml EYEBOTH DAILY LOGAN Enoxaparin Sodium (Lovenox) 40 mg SUBCUT Q24H LOGAN Guaifenesin (Mucinex) 600 mg PO DAILY LOGAN Remdesivir 100 mg/ Sodium (Chloride) 100 mls @ 100 mls/hr IV Q24H LOGAN Remdesivir 200 mg/ Sodium (Chloride) 250 mls @ 250 mls/hr IV ONETIME ONE Stop: 11/18/19 00:29 Last Admin: 11/17/19 23:47 Dose: 250 mls/hr Documented by: NATALIYA Naproxen (Naproxen Sodium) 220 mg PO BID LOGAN Non-Formulary Medication (Latanoprost/Pf [Latanoprost 0.005% Eye Drop]) 7.5 ml OP BEDTIME LOGAN Fluticasone/Salmeterol (Advair Diskus 250-50) 0 puff INH BID LOGAN Tiotropium [place] (Spiriva Handihaler) 18 mcg INH DAILY LOGAN Zaleplon (Sonata) 5 mg PO BEDTIME LOGAN
[2019-11-18] MEDS ORDERED: Carboxymethylcellulose Sodium 0.5% Ophth Soln 0.4 ML UD Box of 30 EYEBOTH SCH
[2019-11-18] MEDS: Enoxaparin 40 MG/0.4 ML Syringe SUBCUT SCH ×2 (00:26→23:04)
[2019-11-18] MEDS: Albuterol 0.083% 2.5 MG/3 ML Neb Soln NEB SCH ×4 (00:30→20:48)
[2019-11-18] MEDS: Carboxymethylcellulose Sodium 0.5% Ophth Soln 0.4 ML UD Box of 30 EYEBOTH SCH ×4 (00:34→23:09)
[2019-11-18] MEDS: Fluticasone/Salmeterol 250-50 MCG Inhalation Powder 14/Diskus INH SCH ×4 (00:35→21:06)
[2019-11-18] MEDS: Dorzolamide/Timolol 2%-0.5% Ophth Soln 10 ML Bottle EYEBOTH SCH ×2 (00:43→10:08)
[2019-11-18] MEDS: Latanoprost 0.005% Ophth Soln 2.5 ML Bottle EYEBOTH SCH ×2 (00:54→23:09)
[2019-11-18 06:38] LABS: BLOOD UREA NITROGEN,BUN 13 mg/dL (7.0-18.0); CARBON DIOXIDE,CO2 27.7 mmol/L (21.0-32.0); CHLORIDE,CL 102 mmol/L (98-107); GLUCOSE RANDOM 127 mg/dL (74-106); SODIUM,NA 138 mmol/L (136-148)
[2019-11-18] MEDS: Dexamethasone 4 MG Tab PO SCH (08:30)
[2019-11-18] MEDS: Cyanocobalamin (Vitamin B12) 500 MCG Tab PO SCH (08:31)
[2019-11-18] MEDS: guaiFENesin 600 MG Tab.ER PO SCH (08:31)
[2019-11-18] MEDS: Cholecalciferol (Vitamin D3) 25 MCG Tab PO SCH (08:49)
[2019-11-18] MEDS ORDERED: Tiotropium Inhaler 18 MCG Inhalation Powder Cap Kit of 5 INH SCH ×2 (09:00→14:00)
--- NOTE | 2019-11-18 11:42 | PCM.PN ---
- General Info Date of Service: 11/18/19 - Review of Systems Systems Review Comment:: feeling better, breathing is almost back to baseline - Patient Data Vitals - Most Recent: Last Vital Signs Temp 36.6 C 11/18/19 08:00 Pulse 90 11/18/19 08:00 Resp 18 11/18/19 08:00 BP 119/68 11/18/19 08:00 Pulse Ox 92 L 11/18/19 08:00 Weight - Most Recent: 97.613 kg I&O - Last 24 Hours: Intake & Output 11/17/19 11/18/19 11/18/19 22:59 06:59 14:59 Intake Total 750 Output Total 1400 Balance -650 Lab Results Last 24 Hours: Laboratory Results - last 24 hr 11/17/19 11/17/19 11/17/19 Range/Units 15:35 15:35 15:35 WBC 4.52 (4.0-11.0) K/uL RBC 5.00 (4.50-5.90) M/uL Hgb 15.5 (13.0-17.0) g/dL Hct 46.6 (38.0-50.0) % MCV 93.2 (80.0-98.0) fL MCH 31.0 (27.0-32.0) pg MCHC 33.3 (31.0-37.0) g/dL RDW Std Deviation 47.3 (28.0-62.0) fl RDW Coeff of Shereen 14 (11.0-15.0) % Plt Count 168 (150-400) K/uL MPV 9.40 (7.40-12.00) fL Neut % (Auto) 67.4 (48.0-80.0) % Lymph % (Auto) 19.5 (16.0-40.0) % [place] % (Auto) 13.1 (0.0-15.0) % Eos % (Auto) 0.0 (0.0-7.0) % Baso % (Auto) 0.0 (0.0-1.5) % Neut # (Auto) 3.1 (1.4-5.7) K/uL Lymph # (Auto) 0.9 (0.6-2.4) K/uL [place] # (Auto) 0.6 (0.0-0.8) K/uL Eos # (Auto) 0.0 (0.0-0.7) K/uL Baso # (Auto) 0.0 (0.0-0.1) K/uL Nucleated RBC % 0.0 /100WBC Nucleated RBCs # 0 K/uL D-Dimer, Quantitative (0.0-0.50) mg/L FEU Lactate (0.20-2.00) mmol/L Sodium 134 L (136-148) mmol/L Potassium 4.1 (3.5-5.1) mmol/L Chloride 99 (98-107) mmol/L Carbon Dioxide 27.6 (21.0-32.0) mmol/L BUN 13 (7.0-18.0) mg/dL Creatinine 1.0 (0.8-1.3) mg/dL Est Cr Clr Drug Dosing 60.88 mL/min Estimated GFR (MDRD) > 60.0 ml/min Glucose 100 (74-106) mg/dL Calcium 8.3 L (8.5-10.1) mg/dL Total Bilirubin 0.4 (0.2-1.0) mg/dL AST 40 H (15-37) IU/L ALT 47 (14-63) IU/L Alkaline Phosphatase 73 (46-116) U/L Troponin I < 0.050 (0.000-0.056) ng/mL B-Natriuretic Peptide 34 (<100) PG/ML Total Protein 6.9 (6.4-8.2) g/dL Albumin 3.4 (3.4-5.0) g/dL Globulin 3.5 (2.6-4.0) g/dL Albumin/Globulin Ratio 1.0 (0.9-1.6) SARS CoV-2 RNA Rapid DWIGHT (NEGATIVE) 11/17/19 11/17/19 11/17/19 Range/Units 15:35 15:35 16:15 WBC (4.0-11.0) K/uL RBC (4.50-5.90) M/uL Hgb (13.0-17.0) g/dL Hct (38.0-50.0) % MCV (80.0-98.0) fL MCH (27.0-32.0) pg MCHC (31.0-37.0) g/dL RDW Std Deviation (28.0-62.0) fl RDW Coeff of Shereen (11.0-15.0) % Plt Count (150-400) K/uL MPV (7.40-12.00) fL Neut % (Auto) (48.0-80.0) % Lymph % (Auto) (16.0-40.0) % [place] % (Auto) (0.0-15.0) % Eos % (Auto) (0.0-7.0) % Baso % (Auto) (0.0-1.5) % Neut # (Auto) (1.4-5.7) K/uL Lymph # (Auto) (0.6-2.4) K/uL [place] # (Auto) (0.0-0.8) K/uL Eos # (Auto) (0.0-0.7) K/uL Baso # (Auto) (0.0-0.1) K/uL Nucleated RBC % /100WBC Nucleated RBCs # K/uL D-Dimer, Quantitative 0.61 H (0.0-0.50) mg/L FEU Lactate 0.9 (0.20-2.00) mmol/L Sodium (136-148) mmol/L Potassium (3.5-5.1) mmol/L Chloride (98-107) mmol/L Carbon Dioxide (21.0-32.0) mmol/L BUN (7.0-18.0) mg/dL Creatinine (0.8-1.3) mg/dL Est Cr Clr Drug Dosing mL/min Estimated GFR (MDRD) ml/min Glucose (74-106) mg/dL Calcium (8.5-10.1) mg/dL Total Bilirubin (0.2-1.0) mg/dL AST (15-37) IU/L ALT (14-63) IU/L Alkaline Phosphatase (46-116) U/L Troponin I (0.000-0.056) ng/mL B-Natriuretic Peptide (<100) PG/ML Total Protein (6.4-8.2) g/dL Albumin (3.4-5.0) g/dL Globulin (2.6-4.0) g/dL Albumin/Globulin Ratio (0.9-1.6) SARS CoV-2 RNA Rapid DWIGHT POSITIVE H (NEGATIVE) 11/18/19 11/18/19 Range/Units 05:15 05:15 WBC 3.07 L (4.0-11.0) K/uL RBC 4.90 (4.50-5.90) M/uL Hgb 14.8 (13.0-17.0) g/dL Hct 45.5 (38.0-50.0) % MCV 92.9 (80.0-98.0) fL MCH 30.2 (27.0-32.0) pg MCHC 32.5 (31.0-37.0) g/dL RDW Std Deviation 46.6 (28.0-62.0) fl RDW Coeff of Shereen 14 (11.0-15.0) % Plt Count 177 (150-400) K/uL MPV 9.90 (7.40-12.00) fL Neut % (Auto) 71.7 (48.0-80.0) % Lymph % (Auto) 20.5 (16.0-40.0) % [place] % (Auto) 7.8 (0.0-15.0) % Eos % (Auto) 0.0 (0.0-7.0) % Baso % (Auto) 0.0 (0.0-1.5) % Neut # (Auto) 2.2 (1.4-5.7) K/uL Lymph # (Auto) 0.6 (0.6-2.4) K/uL [place] # (Auto) 0.2 (0.0-0.8) K/uL Eos # (Auto) 0.0 (0.0-0.7) K/uL Baso # (Auto) 0.0 (0.0-0.1) K/uL Nucleated RBC % 0.0 /100WBC Nucleated RBCs # 0 K/uL D-Dimer, Quantitative (0.0-0.50) mg/L FEU Lactate (0.20-2.00) mmol/L Sodium 138 (136-148) mmol/L Potassium 4.0 (3.5-5.1) mmol/L Chloride 102 (98-107) mmol/L Carbon Dioxide 27.7 (21.0-32.0) mmol/L BUN 13 (7.0-18.0) mg/dL Creatinine 1.1 (0.8-1.3) mg/dL Est Cr Clr Drug Dosing 55.35 mL/min Estimated GFR (MDRD) > 60.0 ml/min Glucose 127 H (74-106) mg/dL Calcium 8.2 L (8.5-10.1) mg/dL Total Bilirubin 0.3 (0.2-1.0) mg/dL AST 37 (15-37) IU/L ALT 47 (14-63) IU/L Alkaline Phosphatase 66 (46-116) U/L Troponin I (0.000-0.056) ng/mL B-Natriuretic Peptide (<100) PG/ML Total Protein 6.5 (6.4-8.2) g/dL Albumin 3.1 L (3.4-5.0) g/dL Globulin 3.4 (2.6-4.0) g/dL Albumin/Globulin Ratio 0.9 (0.9-1.6) SARS CoV-2 RNA Rapid DWIGHT (NEGATIVE) Med Orders - Current: Current Medications Albuterol (Proventil Hfa) 0 gm INH Q4HR PRN PRN Reason: Shortness of Breath Albuterol (Proventil Neb Soln) 2.5 mg NEB TIDRT [facility] Last Admin: 11/18/19 06:30 Dose: 2.5 mg Documented by: Artificial Tears (Refresh Plus 0.5%) 0 each EYEBOTH TID [facility] Last Admin: 11/18/19 06:31 Dose: 1 drop Documented by: Cholecalciferol (Vitamin D3) 50 mcg PO DAILY [facility] Last Admin: 11/18/19 08:49 Dose: 50 mcg Documented by: Cyanocobalamin (Vitamin B12) 500 mcg PO DAILY [facility] Last Admin: 11/18/19 08:31 Dose: 500 mcg Documented by: Dexamethasone (Dexamethasone) 6 mg PO DAILY [facility] Last Admin: 11/18/19 08:30 Dose: 6 mg Documented by: Dorzolamide/Timolol (Cosopt 2%-0.5% Ophth Soln) 0 ml EYEBOTH DAILY [facility] Last Admin: 11/18/19 10:08 Dose: Not Given Documented by: Enoxaparin Sodium (Lovenox) 40 mg SUBCUT Q24H [facility] Last Admin: 11/18/19 00:26 Dose: 40 mg Documented by: Finasteride (Proscar) 5 mg PO DAILY [facility] Guaifenesin (Mucinex) 600 mg PO DAILY [facility] Last Admin: 11/18/19 08:31 Dose: 600 mg Documented by: Remdesivir 100 mg/ Sodium (Chloride) 100 mls @ 100 mls/hr IV Q24H [facility] Latanoprost (Xalatan 0.005% Ophth Soln) 0 ml EYEBOTH BEDTIME [facility] Last Admin: 11/18/19 00:54 Dose: 1 drop Documented by: Naproxen (Naproxen Sodium) 220 mg PO Q12H PRN PRN Reason: PAIN Non-Formulary Medication (Roflumilast) 500 mcg PO DAILY [facility] Fluticasone/Salmeterol (Advair Diskus 250-50) 0 puff INH BID [facility] Last Admin: 11/18/19 08:36 Dose: Not Given Documented by: Tamsulosin HCl (Flomax) 0.4 mg PO DAILY [facility] Tiotropium [place] (Spiriva Handihaler) 18 mcg INH DAILY@1400 [facility] Zaleplon (Sonata) 5 mg PO BEDTIME [facility] Last Admin: 11/18/19 00:28 Dose: 5 mg Documented by: Discontinued Medications Artificial Tears (Refresh Plus 0.5%) 0 each EYEBOTH TID [facility] Last Admin: 11/18/19 00:30 Dose: 1 drop Documented by: Dexamethasone (Dexamethasone) 6 mg PO ONETIME ONE Stop: 11/17/19 17:23 Last Admin: 11/17/19 17:58 Dose: 6 mg Documented by: Remdesivir 200 mg/ Sodium (Chloride) 250 mls @ 250 mls/hr IV ONETIME ONE Stop: 11/17/19 17:23 Last Admin: 11/17/19 23:45 Dose: Not Given Documented by: Remdesivir 200 mg/ Sodium (Chloride) 250 mls @ 250 mls/hr IV ONETIME ONE Stop: 11/17/19 19:44 Last Admin: 11/17/19 23:51 Dose: Not Given Documented by: Remdesivir 200 mg/ Sodium (Chloride) 250 mls @ 250 mls/hr IV ONETIME ONE Stop: 11/18/19 00:29 Last Admin: 11/17/19 23:47 Dose: 250 mls/hr Documented by: Naproxen (Naproxen Sodium) 220 mg PO BID [facility] Last Admin: 11/18/19 10:08 Dose: Not Given Documented by: Non-Formulary Medication (Latanoprost/Pf [Latanoprost 0.005% Eye Drop]) 7.5 ml OP BEDTIME [facility] Tiotropium [place] (Spiriva Handihaler) 18 mcg INH DAILY [facility] Last Admin: 11/18/19 09:25 Dose: 18 mcg Documented by: - Exam General: Alert, Oriented Neck: Supple Lungs: Clear to Auscultation, Normal Respiratory Effort Cardiovascular: Regular Rate, Regular Rhythm GI/Abdominal Exam: Soft, Non-Tender, No Distention Extremities: Non-Tender, No Pedal Edema Skin: Warm, Dry, Intact Neurological: No New Focal Deficit Sepsis Event Note - Evaluation Sepsis Screening Result: No Definite Risk - Focused Exam Vital Signs: Vital Signs Temp Pulse Resp BP Pulse Ox 11/18/19 08:00 36.6 C 90 18 119/68 92 L 11/18/19 04:00 36.4 C 87 20 112/68 97 11/18/19 00:57 36.7 C 100 20 119/64 92 L - Problem List Review Problem List Initiated/Reviewed/Updated: Yes - My Orders Last 24 Hours: My Active Orders 11/17/19 18:43 Telemetry Monitoring [Cardiac Monitoring] [RC] Q8H 11/17/19 23:00 Enoxaparin [Lovenox] 40 mg SUBCUT Q24H 11/17/19 23:02 Albuterol [Proventil HFA] 0 gm INH Q4HR PRN 11/17/19 23:03 RT Post Treatment Assessment [RC] Click to Edit RT Pre-Treatment Assessment [RC] Click to Edit 11/17/19 23:26 RT Aerosol Therapy [RC] ASDIRECTED 11/17/19 23:27 Antiembolic Devices [RC] PER UNIT ROUTINE Oxygen Therapy [RC] PRN Up ad Eva [RC] ASDIRECTED VTE/DVT Education [RC] PER UNIT ROUTINE Vital Signs [RC] Q4H Sequential Compression Device [OM.PC] Per Unit Routine Resuscitation Status Routine 11/18/19 00:00 Albuterol [Proventil Neb Soln] 2.5 mg NEB TIDRT Carboxymethylcellulose Sodium [Refresh Plus 0.5%] 0 each EYEBOTH TID Dorzolamide/Timolol [Cosopt 2%-0.5% Ophth Soln] 0 ml EYEBOTH DAILY Fluticasone/Salmeterol [Advair Diskus 250-50] 0 puff INH BID Latanoprost [Xalatan 0.005% Ophth Soln] 0 ml EYEBOTH BEDTIME Zaleplon [Sonata] 5 mg PO BEDTIME 11/18/19 09:00 Cholecalciferol (Vitamin D3) [Vitamin D3] 50 mcg PO DAILY Cyanocobalamin (Vitamin B12) [Vitamin B12] 500 mcg PO DAILY dexAMETHasone 6 mg PO DAILY guaiFENesin [Mucinex] 600 mg PO DAILY 11/18/19 09:31 Naproxen Sodium 220 mg PO Q12H PRN 11/18/19 14:00 Tiotropium [Spiriva HandiHaler] 18 mcg INH DAILY@1400 11/18/19 23:00 Remdesivir (Eua) [Remdesivir (EUA)] 100 mg Sodium Chloride 0.9% [Normal Saline] 100 ml IV Q24H 11/19/19 05:11 CBC WITH AUTO DIFF [HEME] AM COMPREHENSIVE METABOLIC PN,CMP [CHEM] AM 11/19/19 09:00 Finasteride [Proscar] 5 mg PO DAILY Roflumilast 500 mcg PO DAILY Tamsulosin [Flomax] 0.4 mg PO DAILY 11/20/19 05:11 CBC WITH AUTO DIFF [HEME] AM COMPREHENSIVE METABOLIC PN,CMP [CHEM] AM 11/21/19 05:11 CBC WITH AUTO DIFF [HEME] AM COMPREHENSIVE METABOLIC PN,CMP [CHEM] AM - Plan Plan:: 79 yo male with COPD admitted for COVID. COVID: continue Dexamethasone and Remdesivir, incentive spirometry COPD: continue home regiment Discharge: anticipate discharge home tomorrow.
[2019-11-18] MEDS ORDERED: Non-Formulary Medication 1 Each (Latanoprost/Pf [Latanoprost 0.005% Eye Drop] 7.5 ML) OP SCH (21:00)
[2019-11-18] MEDS ORDERED: REMDESIVIR (EUA) 100 MG in Sodium Chloride 0.9% 100 ML IV SCH (23:00)
[2019-11-19] MEDS: Albuterol 0.083% 2.5 MG/3 ML Neb Soln NEB SCH (05:44)
[2019-11-19] MEDS: Carboxymethylcellulose Sodium 0.5% Ophth Soln 0.4 ML UD Box of 30 EYEBOTH SCH (06:09)
[2019-11-19 06:42] LABS: BLOOD UREA NITROGEN,BUN 16 mg/dL (7.0-18.0); CARBON DIOXIDE,CO2 27.9 mmol/L (21.0-32.0); CHLORIDE,CL 106 mmol/L (98-107); GLUCOSE RANDOM 108 mg/dL (74-106); POTASSIUM,K 3.9 mmol/L (3.5-5.1); SODIUM,NA 142 mmol/L (136-148)
[2019-11-19] MEDS ORDERED: DORZOLAMIDE EYEBOTH SCH (09:00)
[2019-11-19] MEDS ORDERED: Finasteride 5 MG Tab PO SCH (09:00)
[2019-11-19] MEDS ORDERED: ROFLUMILAST 500 MCG PO SCH (09:00)
[2019-11-19] MEDS ORDERED: TIMOLOL EYEBOTH SCH (09:00)
[2019-11-19] MEDS ORDERED: Tamsulosin 0.4 MG Cap.ER PO SCH (09:00)
[2019-11-19] MEDS: Cyanocobalamin (Vitamin B12) 500 MCG Tab PO SCH (09:10)
[2019-11-19] MEDS: guaiFENesin 600 MG Tab.ER PO SCH (09:10)
[2019-11-19] MEDS: Dexamethasone 4 MG Tab PO SCH (09:10)
[2019-11-19] MEDS: Cholecalciferol (Vitamin D3) 25 MCG Tab PO SCH (09:14)
[2019-11-19] MEDS: Fluticasone/Salmeterol 250-50 MCG Inhalation Powder 14/Diskus INH SCH (09:27)
--- NOTE | 2019-11-19 11:55 | PCM.DCSUM1 ---
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 Patient's x-ray showed bibasilar infiltrate. CT chest was negative for PE. He was found to be COVID positive. He was treated with dexamethasone and Remdesivir. He did have improvement in his symptoms and today is requesting discharge. Patient was discharge home to follow up with [facility] - Patient Instructions Diet: Usual Diet as Tolerated Activity: As Tolerated - Discharge Plan Prescriptions/Med Rec: dexAMETHasone [Dexamethasone] 6 mg PO DAILY #8 tab Home Medications: Home Meds Albuterol Sulfate 1 unit NEB TID 01/29/18 [History] Albuterol Sulfate [Proair Hfa] 2 puff INH Q4HR PRN 01/29/18 [History] Aspirin 81 mg PO DAILY 01/29/18 [History] Carboxymethylcellulose Sodium [Refresh Plus 0.5%] 1 drop EYEBOTH TID 01/29/18 [History] Cholecalciferol (Vitamin D3) [Vitamin D3] 2,000 unit PO DAILY 01/29/18 [History] Cyanocobalamin (Vitamin B-12) [B-12 Dots] 500 mcg PO DAILY 01/29/18 [History] Dorzolamide HCl/Timolol Maleat [Cosopt Eye Drops] 1 drop EYEBOTH DAILY 01/29/18 [History] Fluticasone Propion/Salmeterol [Advair 250-50 Diskus] 1 puff INH BID 01/29/18 [History] Folic Acid 1 mg PO DAILY 01/29/18 [History] Furosemide [Lasix] 40 mg PO DAILY 01/29/18 [History] Latanoprost/Pf [Latanoprost 0.005% Eye Drop] 1 drop EYEBOTH BEDTIME 01/29/18 [History] Loratadine/Pseudoephedrine [Loratadine-D 12 Hour Tablet] 1 tab PO DAILY 01/29/18 [History] Lutein 20 mg PO DAILY 01/29/18 [History] Multivitamin [Multi-Vitamin Daily] 1 each PO DAILY 01/29/18 [History] Naproxen Sodium [Aleve] 220 mg PO BID PRN 01/29/18 [History] [place]-3 Fatty Acids/DHA/EPA [[place]-3 Softgel] 1 cap PO DAILY 01/29/18 [History] Potassium Chloride [Klor-Con M20] 20 meq PO DAILY 01/29/18 [History] Tiotropium [Spiriva HandiHaler] 18 mcg .XX DAILY 01/29/18 [History] Vitamin E 400 unit PO DAILY 01/29/18 [History] Zolpidem [Ambien] 10 mg PO BEDTIME 01/29/18 [History] guaiFENesin [Mucinex] 600 mg PO DAILY 01/29/18 [History] Aloe Vera/Sodium Chloride [[place] Saline Nasal Gel] 1 applic NASBOTH TID 11/17/19 [History] Finasteride [Proscar] 5 mg PO DAILY 11/18/19 [History] Roflumilast [Daliresp] 500 mcg PO DAILY 11/18/19 [History] Tamsulosin HCl 0.4 mg PO DAILY 11/18/19 [History] dexAMETHasone [Dexamethasone] 6 mg PO DAILY #8 tab 11/19/19 [Rx] Patient Handouts: COVID-19 Frequently Asked Questions, COVID-19, COVID-19: How to Protect Yourself and Others - CDC, Coronavirus Information 05/06/19, Dexamethasone tablets Referrals: Naveed Patiño MD [Primary Care Provider] - Dalila Cortez PA [Physician [employer]] - 12/06/19 2:45 pm (An appointment could not be made with Dr. Patiño due to his schedule. Please bring insurance, identification and your own facemask.) - Discharge Summary/Plan Comment DC Time >30 min.: No - Patient Data Vitals - Most Recent: Last Vital Signs Temp 36.4 C 11/19/19 08:00 Pulse 80 11/19/19 08:00 Resp 16 11/19/19 08:00 BP 113/63 11/19/19 08:00 Pulse Ox 92 L 11/19/19 08:00 Weight - Most Recent: 97.613 kg I&O - Last 24 hours: Intake & Output 11/18/19 11/19/19 11/19/19 22:59 06:59 14:59 Intake Total 900 860 Output Total 800 720 Balance 100 140 Lab Results - Last 24 hrs: Laboratory Results - last 24 hr 11/19/19 11/19/19 Range/Units 05:37 05:37 WBC 3.62 L (4.0-11.0) K/uL RBC 4.87 (4.50-5.90) M/uL Hgb 15.1 (13.0-17.0) g/dL Hct 45.1 (38.0-50.0) % MCV 92.6 (80.0-98.0) fL MCH 31.0 (27.0-32.0) pg MCHC 33.5 (31.0-37.0) g/dL RDW Std Deviation 46.7 (28.0-62.0) fl RDW Coeff of Shereen 14 (11.0-15.0) % Plt Count 166 (150-400) K/uL MPV 9.60 (7.40-12.00) fL Neut % (Auto) 36.2 L (48.0-80.0) % Lymph % (Auto) 50.3 H (16.0-40.0) % [place] % (Auto) 13.5 (0.0-15.0) % Eos % (Auto) 0.0 (0.0-7.0) % Baso % (Auto) 0.0 (0.0-1.5) % Neut # (Auto) 1.3 L (1.4-5.7) K/uL Lymph # (Auto) 1.8 (0.6-2.4) K/uL [place] # (Auto) 0.5 (0.0-0.8) K/uL Eos # (Auto) 0.0 (0.0-0.7) K/uL Baso # (Auto) 0.0 (0.0-0.1) K/uL Nucleated RBC % 0.0 /100WBC Nucleated RBCs # 0 K/uL Sodium 142 (136-148) mmol/L Potassium 3.9 (3.5-5.1) mmol/L Chloride 106 (98-107) mmol/L Carbon Dioxide 27.9 (21.0-32.0) mmol/L BUN 16 (7.0-18.0) mg/dL Creatinine 0.9 (0.8-1.3) mg/dL Est Cr Clr Drug Dosing 67.65 mL/min Estimated GFR (MDRD) > 60.0 ml/min Glucose 108 H (74-106) mg/dL Calcium 8.3 L (8.5-10.1) mg/dL Total Bilirubin 0.2 (0.2-1.0) mg/dL AST 39 H (15-37) IU/L ALT 43 (14-63) IU/L Alkaline Phosphatase 58 (46-116) U/L Total Protein 6.1 L (6.4-8.2) g/dL Albumin 2.9 L (3.4-5.0) g/dL Globulin 3.2 (2.6-4.0) g/dL Albumin/Globulin Ratio 0.9 (0.9-1.6) Med Orders - Current: Current Medications Albuterol (Proventil Hfa) 0 gm INH Q4HR PRN PRN Reason: Shortness of Breath Albuterol (Proventil Neb Soln) 2.5 mg NEB TIDRT [facility] Last Admin: 11/19/19 05:44 Dose: 2.5 mg Documented by: Artificial Tears (Refresh Plus 0.5%) 0 each EYEBOTH TID [facility] Last Admin: 11/19/19 06:09 Dose: 1 drop Documented by: Cholecalciferol (Vitamin D3) 50 mcg PO DAILY [facility] Last Admin: 11/19/19 09:14 Dose: 50 mcg Documented by: Cyanocobalamin (Vitamin B12) 500 mcg PO DAILY [facility] Last Admin: 11/19/19 09:10 Dose: 500 mcg Documented by: Dexamethasone (Dexamethasone) 6 mg PO DAILY [facility] Last Admin: 11/19/19 09:10 Dose: 6 mg Documented by: Enoxaparin Sodium (Lovenox) 40 mg SUBCUT Q24H [facility] Last Admin: 11/18/19 23:04 Dose: 40 mg Documented by: Finasteride (Proscar) 5 mg PO DAILY [facility] Last Admin: 11/19/19 09:10 Dose: 5 mg Documented by: Guaifenesin (Mucinex) 600 mg PO DAILY [facility] Last Admin: 11/19/19 09:10 Dose: 600 mg Documented by: Remdesivir 100 mg/ Sodium (Chloride) 100 mls @ 100 mls/hr IV Q24H [facility] Stop: 11/21/19 23:01 Last Admin: 11/18/19 23:00 Dose: 100 mls/hr Documented by: Latanoprost (Xalatan 0.005% Ophth Soln) 0 ml EYEBOTH BEDTIME [facility] Last Admin: 11/18/19 23:09 Dose: 1 drop Documented by: Naproxen (Naproxen Sodium) 220 mg PO Q12H PRN PRN Reason: PAIN Roflumilast 500 Mcg) 1 each PO DAILY [facility] Last Admin: 11/19/19 09:27 Dose: Not Given Documented by: Dorzolamide/Timolol (2%-0.5% Ophth Soln) 0 each EYEBOTH DAILY [facility] Last Admin: 11/19/19 09:11 Dose: 1 each Documented by: Fluticasone/Salmeterol (Advair Diskus 250-50) 0 puff INH BID [facility] Last Admin: 11/19/19 09:27 Dose: 1 puff Documented by: Tamsulosin HCl (Flomax) 0.4 mg PO DAILY [facility] Last Admin: 11/19/19 09:10 Dose: 0.4 mg Documented by: Tiotropium [place] (Spiriva Handihaler) 18 mcg INH DAILY@1400 [facility] Last Admin: 11/18/19 13:29 Dose: 18 mcg Documented by: Zaleplon (Sonata) 5 mg PO BEDTIME [facility] Last Admin: 11/18/19 23:13 Dose: 5 mg Documented by: Discontinued Medications Artificial Tears (Refresh Plus 0.5%) 0 each EYEBOTH TID [facility] Last Admin: 11/18/19 00:30 Dose: 1 drop Documented by: Dexamethasone (Dexamethasone) 6 mg PO ONETIME ONE Stop: 11/17/19 17:23 Last Admin: 11/17/19 17:58 Dose: 6 mg Documented by: Dorzolamide/Timolol (Cosopt 2%-0.5% Ophth Soln) 0 ml EYEBOTH DAILY [facility] Last Admin: 11/18/19 10:08 Dose: Not Given Documented by: Remdesivir 200 mg/ Sodium (Chloride) 250 mls @ 250 mls/hr IV ONETIME ONE Stop: 11/17/19 17:23 Last Admin: 11/17/19 23:45 Dose: Not Given Documented by: Remdesivir 200 mg/ Sodium (Chloride) 250 mls @ 250 mls/hr IV ONETIME ONE Stop: 11/17/19 19:44 Last Admin: 11/17/19 23:51 Dose: Not Given Documented by: Remdesivir 200 mg/ Sodium (Chloride) 250 mls @ 250 mls/hr IV ONETIME ONE Stop: 11/18/19 00:29 Last Admin: 11/17/19 23:47 Dose: 250 mls/hr Documented by: Naproxen (Naproxen Sodium) 220 mg PO BID [facility] Last Admin: 11/18/19 10:08 Dose: Not Given Documented by: Non-Formulary Medication (Latanoprost/Pf [Latanoprost 0.005% Eye Drop]) 7.5 ml OP BEDTIME [facility] Tiotropium [place] (Spiriva Handihaler) 18 mcg INH DAILY [facility] Last Admin: 11/18/19 09:25 Dose: 18 mcg Documented by:
[2019-11-19 12:23] VITALS: BP 110/61; PULSE 67
== END 2019-11-19 13:40 | disposition home or self-care (01) | DRG 179 ==
LOC: MW.ED 14:51 → MW.MS 17:23
PROVIDERS: ADMIT Internal Medicine; ATTEND Internal Medicine
PROC: XW033E5 Introduction of Remdesivir Anti-infective into Peripheral Vein, Percutaneous Approach, New Technology Group 5 (ICD-10-PCS; principal; 2019-11-17)
PROC: XW033E5 Introduction of Remdesivir Anti-infective into Peripheral Vein, Percutaneous Approach, New Technology Group 5 (ICD-10-PCS; 2019-11-18)
DX: U07.1 COVID-19 (principal); J44.9 Chronic obstructive pulmonary disease, unspecified; H54.7 Unspecified visual loss; N42.9 Disorder of prostate, unspecified; G89.29 Other chronic pain; M54.40 Lumbago with sciatica, unspecified side; M54.9 Dorsalgia, unspecified; Z98.49 Cataract extraction status, unspecified eye; Z90.49 Acquired absence of other specified parts of digestive tract; Z98.890 Other specified postprocedural states; Z99.81 Dependence on supplemental oxygen; Z79.82 Long term (current) use of aspirin; Z79.899 Other long term (current) drug therapy; Z88.0 Allergy status to penicillin; Z87.891 Personal history of nicotine dependence
CPT/HCPCS: 36415; 71045; 80053; 83605; 83880; 84484; 85025; 85379; 93005; 99285; U0002 ×2; 71275; 71275-26; 94640; 94664; 99221; 99231; 99238; 99283; A9270-GY; J1650; J7050; J8540

== ENCOUNTER 2019-11-25 18:51 | Inpatient (IN) | payer MEDICARE, OTHER ==
[2019-11-25] MEDS ORDERED: Sodium Chloride 0.9% 2.5 ML Syringe FLUSH PRN (19:15)
[2019-11-25] MEDS ORDERED: Sodium Chloride 0.9% 10 ML Syringe FLUSH PRN (19:15)
[2019-11-25 19:56] LABS: BLOOD UREA NITROGEN,BUN 21 mg/dL (7.0-18.0); CARBON DIOXIDE,CO2 24.4 mmol/L (21.0-32.0); CHLORIDE,CL 97 mmol/L (98-107); GLUCOSE RANDOM 130 mg/dL (74-106); POTASSIUM,K 3.9 mmol/L (3.5-5.1); SODIUM,NA 133 mmol/L (136-148)
--- NOTE | 2019-11-25 20:24 | CR ---
INDICATION: COVID. Difficulty breathing. COMPARISON: 11/17/2019. FINDINGS/IMPRESSION: No significant change in mild bibasilar lung stranding, greatest on the right, favored to represent atelectasis or scarring. No definite acute pulmonary infiltrates identified. No pleural effusions. Normal heart size. No acute osseous findings. Dictated by Moose Hernandez MD @ 11/25/2019 8:21:41 PM Dictated by: Moose Hernandez MD @ 11/25/2019 20:22:47 (Electronically Signed)
--- NOTE | 2019-11-25 20:51 | EDM.PDOC ---
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 The patient states that approximately 1 week ago he was diagnosed with coronavirus. States that he has been using his inhaler more frequently. He states that he comes to the emergency department today because his at home oxygen. The patient denies any chest pain but states that he does feel short of breath and has a nonproductive cough. He denies any abdominal pain, nausea or vomiting. He denies any fevers or chills. He denies any lower extremity edema, recent travel, recent surgery or prior history of DVT or PE. REVIEW OF SYSTEMS: Constitutional: Positive for weakness. Denies fever, chills. Eyes: Denies eye pain Ears, Nose, Mouth, & Throat: Denies earache Cardiovascular: Denies chest pain Respiratory: Positive shortness of breath and nonproductive cough Gastrointestinal: Denies Nausea, vomiting, diarrhea, hematochezia. Genitourinary: Denies hematuria Skin:Denies a rash Neurological: Denies blurred vision Psychiatric: Denies depression PAST MEDICAL HISTORY: As per history of present illness and as reviewed below otherwise noncontributory. SURGICAL HISTORY: As per history of present illness and as reviewed below otherwise noncontributory. SOCIAL HISTORY: As per history of present illness and as reviewed below otherwise noncontributory. FAMILY HISTORY: As per history of present illness and as reviewed below otherwise noncontributory. EXAMINATION OF ORGAN SYSTEMS/BODY AREAS: Constitutional: Blood pressure is 112/74, heart rate 99, respiratory rate 20 with an oxygen saturation 94% on 5 L nasal cannula. Temperature 36.0 General: Elderly man who does not appear to be any acute distress. Psychiatric: Appropriate mood and affect. Eyes: No scleral icterus or conjunctival erythema ENMT: Moist mucous membranes. No pharyngeal erythema Cardiovascular: Regular, rate, and rythym. No gallops, murmurs, or rubs. Bilateral upper extremity pulses symmetric and intact. No peripheral edema. No JVD. Respiratory: Lungs clear to auscultation bilaterally. No wheezes, rales, or rhonchi. Patient is speaking in full sentences Gastrointestinal: Soft, non-tender, non-distended. Normoactive bowel sounds Genitourinary: No suprapubic tenderness Musculoskeletal: Normal range of motion. Skin: No lesions or abrasions. Neurological: Alert, GCS 15 MEDICAL DECISION MAKING AND COURSE IN THE ED WITH INTERPRETATION/REVIEW OF DIAGNOSTIC STUDIES: This is a 79-year-old man with a past mental history of COPD on 3 L home oxygen level and recent diagnosis of coronavirus in [place] who comes to the emergency department with shortness of breath with increased oxygen requirement to overall appears well. Given his increased oxygen requirement we will obtain an EKG. We also obtain a chest x-ray. Will obtain labs including CBC, BMP, coags, type and screen, troponin, d-dimer. Will resend the patient's coronavirus. Twelve-lead EKG interpreted by myself. Normal sinus rhythm at a rate of 96beats per minute.Left axis. MO interval is 166ms. QRS duration is 87ms. ST segments are normal without elevations or depressions. No Q waves present. Hypertrophy not noted. No changes demonstrated from prior EKG dated 11/17/2019. Interpretati on: Normal sinus rhythm Laboratory: CBC is unremarkable. CMP reveals hyponatremia at 133, hypochloremia at 97, mildly elevated BUN at 21 and hyperglycemia at 130. Mild AST elevation at 56. Troponin is negative. D-dimer is elevated at 1.08. Coags are within normal limits. The radiological images were viewed by myself along with reading the report from the radiologist. Chest x-ray does not reveal any change in mild bibasilar lung stranding which is greatest on the right favored to represent atelectasis or scarring. No acute cardiopulmonary process otherwise identified. After labs I did order a CT with PE protocol given his recent coronavirus infection and concern for respiratory failure secondary to pulmonary embolism. The radiological images were viewed by myself along with reading the report from the radiologist. CT thorax with PE protocol does not reveal any evidence of pulmonary embolism. There is moderate patchy consolidation of the posterior right lung base associated with a tiny right pleural effusion, atelectasis versus pneumonia. There is a mild patchy density throughout the left lung base adjacent to the left hemidiaphragm probably atelectasis. There are additional areas of scattered increased interstitial markings in the inferior lungs bilaterally. There is a nonobstructive 7 mm calculus in the interior polar right kidney. On reevaluation, the patient was still requiring 5 L of nasal cannula to maintain his oxygen saturation at 90 to 92%. I did discuss with him at this time that he like to admit him to the hospital. He was amenable to this plan. I contacted Dr. Núñez who accepted the admission. DISPOSITION: The patient is admitted to the hospital in stable condition CONDITION: Fair PROCEDURES: None FINAL IMPRESSION(S)/DIAGNOSES: 1. Acute hypoxic respiratory failure secondary to coronavirus Tito Herring M.D. DISPOSITION: The patient was discharged home in stable condition. The patient will follow up with default value CONDITION: Critical, Serious, Fair, Good PROCEDURES: None FINAL IMPRESSION(S)/DIAGNOSES: Default value Tito Herring M.D. - Related Data Allergies Allergy/AdvReac Type Severity Reaction Status Date / Time Penicillins Allergy Hives Verified 11/26/19 01:33 Home Meds: Home Meds Albuterol Sulfate 1 unit NEB QID 01/29/18 [History] Albuterol Sulfate [Proair Hfa] 2 puff INH Q4HR PRN 01/29/18 [History] Aspirin 81 mg PO DAILY 01/29/18 [History] Carboxymethylcellulose Sodium [Refresh Plus 0.5%] 1 drop EYEBOTH TID 01/29/18 [History] Cholecalciferol (Vitamin D3) [Vitamin D3] 2,000 unit PO DAILY 01/29/18 [History] Cyanocobalamin (Vitamin B-12) [B-12 Dots] 500 mcg PO DAILY 01/29/18 [History] Dorzolamide HCl/Timolol Maleat [Cosopt Eye Drops] 1 drop EYEBOTH DAILY 01/29/18 [History] Fluticasone Propion/Salmeterol [Advair 250-50 Diskus] 1 puff INH BID 01/29/18 [History] Folic Acid 1 mg PO DAILY 01/29/18 [History] Furosemide [Lasix] 40 mg PO DAILY 01/29/18 [History] Latanoprost/Pf [Latanoprost 0.005% Eye Drop] 1 drop EYEBOTH BEDTIME 01/29/18 [History] Loratadine/Pseudoephedrine [Loratadine-D 12 Hour Tablet] 1 tab PO DAILY 01/29/18 [History] Lutein 20 mg PO DAILY 01/29/18 [History] Multivitamin [Multi-Vitamin Daily] 1 each PO DAILY 01/29/18 [History] Coello-3 Fatty Acids/DHA/EPA [Ovega-3 Softgel] 1 cap PO BID 01/29/18 [History] Potassium Chloride [Klor-Con M20] 20 meq PO DAILY 01/29/18 [History] Tiotropium [Spiriva HandiHaler] 18 mcg .XX DAILY 01/29/18 [History] Vitamin E 400 unit PO DAILY 01/29/18 [History] Zolpidem [Ambien] 10 mg PO BEDTIME 01/29/18 [History] guaiFENesin [Mucinex] 600 mg PO DAILY 01/29/18 [History] Finasteride [Proscar] 5 mg PO DAILY 11/18/19 [History] Roflumilast [Daliresp] 500 mcg PO DAILY 11/18/19 [History] Tamsulosin HCl 0.4 mg PO DAILY 11/18/19 [History] Lutein/Minerals/Vit A,C & E [Ocuvite] 1 tab PO DAILY 11/25/19 [History] Timolol [Betimol] 1 drop EYEBOTH DAILY 11/25/19 [History] Past Medical History HEENT History: Reports: Cataract, Glaucoma, Impaired Vision, Other (See Below) Other HEENT History: Glaucoma left eye Respiratory History: Reports: COPD Genitourinary History: Reports: Prostate Disorder Musculoskeletal History: Reports: Back Pain, Chronic, Other (See Below) Other Musculoskeletal History: sciatica Hematologic History: Reports: None Immunologic History: Reports: None Oncologic (Cancer) History: Reports: None - Infectious Disease History Infectious Disease History: Reports: Chicken Pox, Measles - Past Surgical History HEENT Surgical History: Reports: Cataract Surgery GI Surgical History: Reports: Appendectomy Musculoskeletal Surgical History: Reports: Other (See Below) Other Musculoskeletal Surgeries/Procedures:: back surgery, left shoulder surgery Social & Family History - Family History Family Medical History: Noncontributory - Tobacco Use Smoking Status *Q: Former Smoker Used Tobacco, but Quit: Yes Month/Year Tobacco Last Used: 02/2003 - Caffeine Use Caffeine Use: Reports: Soda - Recreational Drug Use Recreational Drug Use: No ED ROS GENERAL - Review of Systems Review Of Systems: See Below ED EXAM, GENERAL - Physical Exam Exam: See Below Course - Vital Signs Last Recorded V/S: Last Vital Signs Temp 36.4 C 11/26/19 01:00 Pulse 78 11/26/19 01:00 Resp 19 11/26/19 01:00 BP 136/69 11/26/19 01:00 Pulse Ox 92 L 11/26/19 01:00 - Orders/Labs/Meds Orders: Active Orders 24 hr Category Date Time Status Admission Status [Patient Status] [ADT] Stat ADT 11/25/19 22:31 Active Cardiac Monitoring [RC] . DIRECTED Care 11/25/19 19:15 Active EKG 12 Lead [EKG Documentation Completion] [RC] STAT Care 11/25/19 18:55 Active Pulse Oximetry [RC] ASDIRECTED Care 11/25/19 19:15 Active Sodium Chloride 0.9% [Saline Flush] Med 11/25/19 19:15 Active 10 ml FLUSH ASDIRECTED PRN Sodium Chloride 0.9% [Saline Flush] Med 11/25/19 19:15 Active 2.5 ml FLUSH ASDIRECTED PRN Saline Lock Insert [OM.PC] Stat Oth 11/25/19 19:15 Ordered Medication Orders Acetaminophen (Tylenol) 650 mg PO Q4H PRN PRN Reason: Pain (Mild 1-3)/fever Albuterol/Ipratropium (Combivent Respimat) 0 gm INH Q4H PRN PRN Reason: Dyspnea Dexamethasone (Dexamethasone) 6 mg PO DAILY [facility] Last Admin: 11/26/19 01:03 Dose: 6 mg Documented by: JOHN Enoxaparin Sodium (Lovenox) 40 mg SUBCUT BID [facility] Levofloxacin/Dextrose 750 mg/ (Premix) 150 mls @ 100 mls/hr IV Q24H [facility] Last Admin: 11/26/19 00:16 Dose: 100 mls/hr Documented by: UMANG Remdesivir 100 mg/ Sodium (Chloride) 100 mls @ 100 mls/hr IV Q24H [facility] Stop: 11/30/19 00:59 Ondansetron HCl (Zofran) 4 mg IVPUSH Q4H PRN PRN Reason: Nausea/Vomiting Pantoprazole Sodium (Protonix Iv) 40 mg IV DAILY LOGAN Sodium Chloride (Saline Flush) 10 ml FLUSH ASDIRECTED PRN PRN Reason: Keep Vein Open Last Admin: 11/25/19 19:26 Dose: 10 ml Documented by: UMANG Sodium Chloride (Saline Flush) 2.5 ml FLUSH ASDIRECTED PRN PRN Reason: Keep Vein Open Last Admin: 11/25/19 19:25 Dose: 2.5 ml Documented by: UMANG Labs: Laboratory Tests 11/25/19 11/25/19 11/25/19 Range/Units 19:10 19:10 19:10 WBC 6.48 (4.0-11.0) K/uL RBC 4.95 (4.50-5.90) M/uL Hgb 15.2 (13.0-17.0) g/dL Hct 44.6 (38.0-50.0) % MCV 90.1 (80.0-98.0) fL MCH 30.7 (27.0-32.0) pg MCHC 34.1 (31.0-37.0) g/dL RDW Std Deviation 44.7 (28.0-62.0) fl RDW Coeff of Shereen 14 (11.0-15.0) % Plt Count 200 (150-400) K/uL MPV 9.50 (7.40-12.00) fL Neut % (Auto) 85.0 H (48.0-80.0) % Lymph % (Auto) 8.8 L (16.0-40.0) % Surry % (Auto) 6.0 (0.0-15.0) % Eos % (Auto) 0.0 (0.0-7.0) % Baso % (Auto) 0.2 (0.0-1.5) % Neut # (Auto) 5.5 (1.4-5.7) K/uL Lymph # (Auto) 0.6 (0.6-2.4) K/uL Surry # (Auto) 0.4 (0.0-0.8) K/uL Eos # (Auto) 0.0 (0.0-0.7) K/uL Baso # (Auto) 0.0 (0.0-0.1) K/uL Nucleated RBC % 0.0 /100WBC Nucleated RBCs # 0 K/uL INR 1.11 D-Dimer, Quantitative 1.08 H (0.0-0.50) mg/L FEU Sodium 133 L (136-148) mmol/L Potassium 3.9 (3.5-5.1) mmol/L Chloride 97 L (98-107) mmol/L Carbon Dioxide 24.4 (21.0-32.0) mmol/L BUN 21 H (7.0-18.0) mg/dL Creatinine 1.2 (0.8-1.3) mg/dL Est Cr Clr Drug Dosing 50.73 mL/min Estimated GFR (MDRD) 58.6 ml/min Glucose 130 H (74-106) mg/dL Calcium 8.9 (8.5-10.1) mg/dL Total Bilirubin 0.6 (0.2-1.0) mg/dL AST 56 H (15-37) IU/L ALT 61 (14-63) IU/L Alkaline Phosphatase 60 (46-116) U/L Troponin I < 0.050 (0.000-0.056) ng/mL Total Protein 6.8 (6.4-8.2) g/dL Albumin 2.7 L (3.4-5.0) g/dL Globulin 4.1 H (2.6-4.0) g/dL Albumin/Globulin Ratio 0.7 L (0.9-1.6) SARS-CoV-2 RNA (DWIGHT) (NEGATIVE) 11/25/19 Range/Units 20:53 WBC (4.0-11.0) K/uL RBC (4.50-5.90) M/uL Hgb (13.0-17.0) g/dL Hct (38.0-50.0) % MCV (80.0-98.0) fL MCH (27.0-32.0) pg MCHC (31.0-37.0) g/dL RDW Std Deviation (28.0-62.0) fl RDW Coeff of Shereen (11.0-15.0) % Plt Count (150-400) K/uL MPV (7.40-12.00) fL Neut % (Auto) (48.0-80.0) % Lymph % (Auto) (16.0-40.0) % Surry % (Auto) (0.0-15.0) % Eos % (Auto) (0.0-7.0) % Baso % (Auto) (0.0-1.5) % Neut # (Auto) (1.4-5.7) K/uL Lymph # (Auto) (0.6-2.4) K/uL Surry # (Auto) (0.0-0.8) K/uL Eos # (Auto) (0.0-0.7) K/uL Baso # (Auto) (0.0-0.1) K/uL Nucleated RBC % /100WBC Nucleated RBCs # K/uL INR D-Dimer, Quantitative (0.0-0.50) mg/L FEU Sodium (136-148) mmol/L Potassium (3.5-5.1) mmol/L Chloride (98-107) mmol/L Carbon Dioxide (21.0-32.0) mmol/L BUN (7.0-18.0) mg/dL Creatinine (0.8-1.3) mg/dL Est Cr Clr Drug Dosing mL/min Estimated GFR (MDRD) ml/min Glucose (74-106) mg/dL Calcium (8.5-10.1) mg/dL Total Bilirubin (0.2-1.0) mg/dL AST (15-37) IU/L ALT (14-63) IU/L Alkaline Phosphatase (46-116) U/L Troponin I (0.000-0.056) ng/mL Total Protein (6.4-8.2) g/dL Albumin (3.4-5.0) g/dL Globulin (2.6-4.0) g/dL Albumin/Globulin Ratio (0.9-1.6) SARS-CoV-2 RNA (DWIGHT) POSITIVE H (NEGATIVE) Meds: Medications Generic Name Dose Route Start Last Admin Trade Name Freq PRN Reason Stop Dose Admin Acetaminophen 650 mg 11/25/19 23:08 Tylenol PO Q4H PRN Pain (Mild 1-3)/fever Albuterol/Ipratropium 0 gm 11/25/19 23:23 Combivent Respimat INH Q4H PRN Dyspnea Dexamethasone 6 mg 11/25/19 23:15 11/26/19 01:03 Dexamethasone PO 6 mg DAILY LOGAN Administration Enoxaparin Sodium 40 mg 11/26/19 09:00 Lovenox SUBCUT BID LOGAN Levofloxacin/Dextrose 750 mg/ 150 mls @ 100 mls/hr 11/25/19 23:15 11/26/19 00:16 Premix IV 100 mls/hr Q24H LOGAN Administration Remdesivir 100 mg/ Sodium 100 mls @ 100 mls/hr 11/27/19 00:00 Chloride IV 11/30/19 00:59 Q24H LOGAN Ondansetron HCl 4 mg 11/25/19 23:08 Zofran IVPUSH Q4H PRN Nausea/Vomiting Pantoprazole Sodium 40 mg 11/26/19 09:00 Protonix Iv IV DAILY LOGAN Sodium Chloride 10 ml 11/25/19 19:15 11/25/19 19:26 Saline Flush FLUSH 10 ml ASDIRECTED PRN Administration Keep Vein Open Sodium Chloride 2.5 ml 11/25/19 19:15 11/25/19 19:25 Saline Flush FLUSH 2.5 ml ASDIRECTED PRN Administration Keep Vein Open Discontinued Medications Generic Name Dose Route Start Last Admin Trade Name Freq PRN Reason Stop Dose Admin Remdesivir 200 mg/ Sodium 250 mls @ 250 mls/hr 11/25/19 23:19 11/26/19 01:12 Chloride IV 11/25/19 23:20 250 mls/hr ONETIME ONE Administration Remdesivir 100 mg/ Sodium 100 mls @ 100 mls/hr 11/26/19 09:00 Chloride IV Q24H LOGAN Iopamidol 75 ml 11/25/19 20:54 11/25/19 20:55 Isovue-370 (76%) IVPUSH 11/25/19 20:55 75 ml ONETIME STA Administration Departure - Departure Time of Disposition: 22:00 Disposition: Admitted As Inpatient 67 Clinical Impression: Hypoxia - Discharge Information *PRESCRIPTION DRUG MONITORING PROGRAM REVIEWED*: No *COPY OF PRESCRIPTION DRUG MONITORING REPORT IN PATIENT ZAIN: No Sepsis Event Note (ED) - Evaluation Sepsis Screening Result: No Definite Risk - Focused Exam Vital Signs: Vital Signs Temp Pulse Resp BP Pulse Ox 11/25/19 22:20 88 20 112/74 94 L 11/25/19 20:08 89 22 H 112/74 92 L 11/25/19 18:53 36.0 C L 99 20 112/74 94 L - My Orders Last 24 Hours: My Active Orders 11/25/19 18:55 EKG 12 Lead [EKG Documentation Completion] [RC] STAT 11/25/19 19:15 Cardiac Monitoring [RC] . DIRECTED Pulse Oximetry [RC] ASDIRECTED Sodium Chloride 0.9% [Saline Flush] 10 ml FLUSH ASDIRECTED PRN Sodium Chloride 0.9% [Saline Flush] 2.5 ml FLUSH ASDIRECTED PRN Saline Lock Insert [OM.PC] Stat 11/25/19 22:31 Admission Status [Patient Status] [ADT] Stat - Assessment/Plan Last 24 Hours: My Active Orders 11/25/19 18:55 EKG 12 Lead [EKG Documentation Completion] [RC] STAT 11/25/19 19:15 Cardiac Monitoring [RC] . DIRECTED Pulse Oximetry [RC] ASDIRECTED Sodium Chloride 0.9% [Saline Flush] 10 ml FLUSH ASDIRECTED PRN Sodium Chloride 0.9% [Saline Flush] 2.5 ml FLUSH ASDIRECTED PRN Saline Lock Insert [OM.PC] Stat 11/25/19 22:31 Admission Status [Patient Status] [ADT] Stat
[2019-11-25] MEDS ORDERED: Iopamidol 755 Mg/ML 100 ML Bottle IVPUSH STA (20:54)
--- NOTE | 2019-11-25 21:41 | CT ---
INDICATION: Difficulty breathing. Elevated D-dimer. COMPARISON: None available TECHNIQUE: CT examination of the chest was performed with the uneventful intravenous administration of 75 cc of Isovue 370 while 1 and 3 mm thick axial sections were obtained through the pulmonary arteries. Please note that all CT scans at this facility use dose modulation, iterative reconstruction, and/or weight-based dosing when appropriate to reduce radiation dose to as low as reasonably achievable. FINDINGS: : There is no sign of pulmonary embolism, with normal enhancement and branching of the pulmonary arteries. There is moderate patchy consolidation of the posterior right lung base, probably atelectasis or pneumonia. There is a tiny right pleural effusion. There is mild patchy density in the left lung base adjacent to the left hemidiaphragm, probably atelectasis. There is mild prominence of interstitial markings in the anterior lingula and anterior right lower lobe, adjacent to the hemidiaphragms. Additional mild patchy interstitial stranding is seen in the anterior right lung base adjacent to the hemidiaphragm. These are probably areas of scarring from previous inflammatory disease. Mild patchy dependent density is seen in the posterior-lateral left upper lobe adjacent to the major fissure in the superior perihilar region, most consistent with atelectasis. None of the infiltrates are suggestive of COVID-19 infection, although this cannot be excluded. There is no sign of mediastinal or hilar mass or adenopathy. There is moderate triple vessel coronary calcification. The heart is otherwise normal in appearance for the patient`s age, as are the aorta and other ascending great vessels. There is no sign of supraclavicular or axillary mass or adenopathy. The visualized superior liver has a 1.7 centimeter low-density region in the inferior aspect of the posterior segment of the right lobe, segment 6, probably a cyst. The visualized superior spleen, pancreas, left kidney, and adrenals are normal in appearance. There is a nonobstructive 7 millimeter calculus in the anterior interpolar right kidney. There is mild scoliosis of the inferior thoracic spine convex towards the left. IMPRESSION: No sign of pulmonary embolism. Moderate patchy consolidation of the posterior right lung base associated with a tiny right pleural effusion, atelectasis versus pneumonia. Mild patchy density throughout the left lung base adjacent to the left hemidiaphragm, probably atelectasis. Additional areas of scattered increased interstitial markings in the inferior lungs bilaterally, probably areas of scarring from previous inflammatory disease. Nothing seen suggestive of COVID-19 infection, although this cannot be excluded radiographically. Nonobstructive 7 millimeter calculus in the interpolar right kidney. Please note that all CT scans at this facility use dose modulation, iterative reconstruction, and/or weight-based dosing when appropriate to reduce radiation dose to as low as reasonably achievable. Dictated by Alexys Graham MD @ Nov 25 2019 9:30PM Signed by Dr. Alexys Graham @ Nov 25 2019 9:39PM
[2019-11-25] MEDS ORDERED: Ondansetron 4 MG/2 ML SDV IVPUSH PRN (23:08)
[2019-11-25] MEDS ORDERED: Albuterol/Ipratropium 4 GM Inhalation Spray INH PRN (23:23)
[2019-11-26] MEDS: Levofloxacin/Dextrose 5%-Water 750 MG in Premix Bag 1 BAG IV SCH ×2 (00:16→22:19)
[2019-11-26] MEDS: Dexamethasone 4 MG Tab PO SCH ×2 (01:03→08:14)
[2019-11-26 07:10] LABS: BLOOD UREA NITROGEN,BUN 19 mg/dL (7.0-18.0); CARBON DIOXIDE,CO2 24.8 mmol/L (21.0-32.0); CHLORIDE,CL 100 mmol/L (98-107); GLUCOSE RANDOM 116 mg/dL (74-106); POTASSIUM,K 4.1 mmol/L (3.5-5.1); SODIUM,NA 135 mmol/L (136-148)
[2019-11-26] MEDS: Enoxaparin 40 MG/0.4 ML Syringe SUBCUT SCH ×2 (08:14→20:29)
[2019-11-26] MEDS: Pantoprazole 40 MG Vial IV SCH (08:18)
[2019-11-26] MEDS ORDERED: REMDESIVIR (EUA) 100 MG in Sodium Chloride 0.9% 100 ML IV SCH (09:00)
--- NOTE | 2019-11-26 11:40 | PCM.HP.2 ---
H&P History of Present Illness - General Date of Service: 11/26/19 Admit Problem/Dx: Admission Diagnosis/Problem Admission Diagnosis/Problem Hypoxia - History of Present Illness Initial Comments - Free Text/Narative: This is a 79-year-old with a past medical history of COPD on 3 L home oxygen who comes to the emergency department with a chief complaint of shortness of breath, weakness, fatigue, body pains The patient states that approximately 1 week ago he was diagnosed with coronavirus, he was admitted for hypoxia and discharged in 2 days. States that last few day he has been using his inhaler more frequently, his oxygen requirement has increased as well. The patient denies any chest pain but states that he does feel short of breath and has a nonproductive cough. He denies any abdominal pain, nausea or vomiting. He denies any fevers or chills. He denies any lower extremity edema, recent travel, recent surgery or prior history of DVT or PE. He was found to be requring 5-6 lts of oxygen. CTA showed possible PNA on right side. Patient was admitted for further management. - Related Data Allergies/Adverse Reactions: Allergies Allergy/AdvReac Type Severity Reaction Status Date / Time Penicillins Allergy Hives Verified 11/26/19 01:33 Home Medications: Home Meds Albuterol Sulfate 1 unit NEB QID 01/29/18 [History] Albuterol Sulfate [Proair Hfa] 2 puff INH Q4HR PRN 01/29/18 [History] Aspirin 81 mg PO DAILY 01/29/18 [History] Carboxymethylcellulose Sodium [Refresh Plus 0.5%] 1 drop EYEBOTH TID 01/29/18 [History] Cholecalciferol (Vitamin D3) [Vitamin D3] 2,000 unit PO DAILY 01/29/18 [History] Cyanocobalamin (Vitamin B-12) [B-12 Dots] 500 mcg PO DAILY 01/29/18 [History] Dorzolamide HCl/Timolol Maleat [Cosopt Eye Drops] 1 drop EYEBOTH DAILY 01/29/18 [History] Fluticasone Propion/Salmeterol [Advair 250-50 Diskus] 1 puff INH BID 01/29/18 [History] Folic Acid 1 mg PO DAILY 01/29/18 [History] Furosemide [Lasix] 40 mg PO DAILY 01/29/18 [History] Latanoprost/Pf [Latanoprost 0.005% Eye Drop] 1 drop EYEBOTH BEDTIME 01/29/18 [History] Loratadine/Pseudoephedrine [Loratadine-D 12 Hour Tablet] 1 tab PO DAILY 01/29/18 [History] Lutein 20 mg PO DAILY 01/29/18 [History] Multivitamin [Multi-Vitamin Daily] 1 each PO DAILY 01/29/18 [History] Alma-3 Fatty Acids/DHA/EPA [Ovega-3 Softgel] 1 cap PO BID 01/29/18 [History] Potassium Chloride [Klor-Con M20] 20 meq PO DAILY 01/29/18 [History] Tiotropium [Spiriva HandiHaler] 18 mcg .XX DAILY 01/29/18 [History] Vitamin E 400 unit PO DAILY 01/29/18 [History] Zolpidem [Ambien] 10 mg PO BEDTIME 01/29/18 [History] guaiFENesin [Mucinex] 600 mg PO DAILY 01/29/18 [History] Finasteride [Proscar] 5 mg PO DAILY 11/18/19 [History] Roflumilast [Daliresp] 500 mcg PO DAILY 11/18/19 [History] Tamsulosin HCl 0.4 mg PO DAILY 11/18/19 [History] Lutein/Minerals/Vit A,C & E [Ocuvite] 1 tab PO DAILY 11/25/19 [History] Timolol [Betimol] 1 drop EYEBOTH DAILY 11/25/19 [History] Past Medical History HEENT History: Reports: Cataract, Glaucoma, Impaired Vision, Other (See Below) Other HEENT History: Glaucoma left eye Respiratory History: Reports: COPD Genitourinary History: Reports: Prostate Disorder Musculoskeletal History: Reports: Back Pain, Chronic, Other (See Below) Other Musculoskeletal History: sciatica Hematologic History: Reports: None Immunologic History: Reports: None Oncologic (Cancer) History: Reports: None - Infectious Disease History Infectious Disease History: Reports: Chicken Pox, Measles - Past Surgical History HEENT Surgical History: Reports: Cataract Surgery GI Surgical History: Reports: Appendectomy Musculoskeletal Surgical History: Reports: Other (See Below) Other Musculoskeletal Surgeries/Procedures:: back surgery, left shoulder surgery Social & Family History - Family History Family Medical History: Noncontributory - Tobacco Use Smoking Status *Q: Former Smoker Used Tobacco, but Quit: Yes Month/Year Tobacco Last Used: 02/2003 - Caffeine Use Caffeine Use: Reports: Soda - Recreational Drug Use Recreational Drug Use: No H&P Review of Systems - Review of Systems: Review Of Systems: See Below General: Reports: Malaise, Weakness, Fatigue. Denies: Fever, Chills Pulmonary: Reports: Shortness of Breath, Cough, Sputum. Denies: Wheezing, Pleuritic Chest Pain Cardiovascular: Reports: Dyspnea on Exertion. Denies: Chest Pain, Palpitations, Orthopnea Gastrointestinal: Denies: Abdominal Pain, Anorexia, Black Stool, Bloody Stool Genitourinary: Denies: Dysuria, Frequency, Burning Musculoskeletal: Denies: Neck Pain, Shoulder Pain, Arm Pain Skin: Denies: Cyanosis, Jaundice, Mottled, Pallor Psychiatric: Denies: Mood Lability, Anxiety Exam - Exam Exam: See Below - Vital Signs Vital Signs: Last Vital Signs Temp 36.6 C 11/26/19 08:30 Pulse 76 11/26/19 08:30 Resp 18 11/26/19 08:30 BP 114/69 11/26/19 08:30 Pulse Ox 91 L 11/26/19 08:30 Weight: 97.069 kg - Exam Quality Assessment: Supplemental Oxygen General: Alert, Oriented, Moderate Distress HEENT: Other (hard of hearing) Neck: Supple, Trachea Midline Lungs: Clear to Auscultation, Normal Respiratory Effort Cardiovascular: Regular Rate, Regular Rhythm - Patient Data Lab Results Last 24 hrs: Laboratory Results - last 24 hr 11/25/19 11/25/19 11/25/19 Range/Units 19:10 19:10 19:10 WBC 6.48 (4.0-11.0) K/uL RBC 4.95 (4.50-5.90) M/uL Hgb 15.2 (13.0-17.0) g/dL Hct 44.6 (38.0-50.0) % MCV 90.1 (80.0-98.0) fL MCH 30.7 (27.0-32.0) pg MCHC 34.1 (31.0-37.0) g/dL RDW Std Deviation 44.7 (28.0-62.0) fl RDW Coeff of Shereen 14 (11.0-15.0) % Plt Count 200 (150-400) K/uL MPV 9.50 (7.40-12.00) fL Neut % (Auto) 85.0 H (48.0-80.0) % Lymph % (Auto) 8.8 L (16.0-40.0) % [place] % (Auto) 6.0 (0.0-15.0) % Eos % (Auto) 0.0 (0.0-7.0) % Baso % (Auto) 0.2 (0.0-1.5) % Neut # (Auto) 5.5 (1.4-5.7) K/uL Lymph # (Auto) 0.6 (0.6-2.4) K/uL [place] # (Auto) 0.4 (0.0-0.8) K/uL Eos # (Auto) 0.0 (0.0-0.7) K/uL Baso # (Auto) 0.0 (0.0-0.1) K/uL Nucleated RBC % 0.0 /100WBC Nucleated RBCs # 0 K/uL INR 1.11 D-Dimer, Quantitative 1.08 H (0.0-0.50) mg/L FEU Sodium 133 L (136-148) mmol/L Potassium 3.9 (3.5-5.1) mmol/L Chloride 97 L (98-107) mmol/L Carbon Dioxide 24.4 (21.0-32.0) mmol/L BUN 21 H (7.0-18.0) mg/dL Creatinine 1.2 (0.8-1.3) mg/dL Est Cr Clr Drug Dosing 50.73 mL/min Estimated GFR (MDRD) 58.6 ml/min Glucose 130 H (74-106) mg/dL Calcium 8.9 (8.5-10.1) mg/dL Phosphorus (2.6-4.7) mg/dL Magnesium (1.8-2.4) mg/dL Total Bilirubin 0.6 (0.2-1.0) mg/dL AST 56 H (15-37) IU/L ALT 61 (14-63) IU/L Alkaline Phosphatase 60 (46-116) U/L Troponin I < 0.050 (0.000-0.056) ng/mL Total Protein 6.8 (6.4-8.2) g/dL Albumin 2.7 L (3.4-5.0) g/dL Globulin 4.1 H (2.6-4.0) g/dL Albumin/Globulin Ratio 0.7 L (0.9-1.6) SARS-CoV-2 RNA (DWIGHT) (NEGATIVE) 11/25/19 11/26/19 11/26/19 Range/Units 20:53 06:03 06:03 WBC 5.93 (4.0-11.0) K/uL RBC 4.77 (4.50-5.90) M/uL Hgb 14.7 (13.0-17.0) g/dL Hct 42.9 (38.0-50.0) % MCV 89.9 (80.0-98.0) fL MCH 30.8 (27.0-32.0) pg MCHC 34.3 (31.0-37.0) g/dL RDW Std Deviation 44.6 (28.0-62.0) fl RDW Coeff of Shereen 14 (11.0-15.0) % Plt Count 203 (150-400) K/uL MPV 9.80 (7.40-12.00) fL Neut % (Auto) 79.2 (48.0-80.0) % Lymph % (Auto) 12.8 L (16.0-40.0) % [place] % (Auto) 7.8 (0.0-15.0) % Eos % (Auto) 0.0 (0.0-7.0) % Baso % (Auto) 0.2 (0.0-1.5) % Neut # (Auto) 4.7 (1.4-5.7) K/uL Lymph # (Auto) 0.8 (0.6-2.4) K/uL [place] # (Auto) 0.5 (0.0-0.8) K/uL Eos # (Auto) 0.0 (0.0-0.7) K/uL Baso # (Auto) 0.0 (0.0-0.1) K/uL Nucleated RBC % 0.0 /100WBC Nucleated RBCs # 0 K/uL INR D-Dimer, Quantitative (0.0-0.50) mg/L FEU Sodium 135 L (136-148) mmol/L Potassium 4.1 (3.5-5.1) mmol/L Chloride 100 (98-107) mmol/L Carbon Dioxide 24.8 (21.0-32.0) mmol/L BUN 19 H (7.0-18.0) mg/dL Creatinine 1.0 (0.8-1.3) mg/dL Est Cr Clr Drug Dosing 60.88 mL/min Estimated GFR (MDRD) > 60.0 ml/min Glucose 116 H (74-106) mg/dL Calcium 8.6 (8.5-10.1) mg/dL Phosphorus 3.3 (2.6-4.7) mg/dL Magnesium 1.9 (1.8-2.4) mg/dL Total Bilirubin 0.4 (0.2-1.0) mg/dL AST 44 H (15-37) IU/L ALT 55 (14-63) IU/L Alkaline Phosphatase 53 (46-116) U/L Troponin I (0.000-0.056) ng/mL Total Protein 6.4 (6.4-8.2) g/dL Albumin 2.4 L (3.4-5.0) g/dL Globulin 4.0 (2.6-4.0) g/dL Albumin/Globulin Ratio 0.6 L (0.9-1.6) SARS-CoV-2 RNA (DWIGHT) POSITIVE H (NEGATIVE) Result Diagrams: 11/26/19 06:03 11/26/19 06:03 Sepsis Event Note - Evaluation Sepsis Screening Result: No Definite Risk - Focused Exam Vital Signs: Vital Signs Temp Pulse Resp BP Pulse Ox 11/26/19 08:30 36.6 C 76 18 114/69 91 L 11/26/19 03:21 36.2 C 70 17 147/75 H 90 L 11/26/19 01:00 36.4 C 78 19 136/69 92 L Problem List Initiated/Reviewed/Updated: Yes Orders Last 24hrs: Active Orders 24 hr Category Date Time Status Patient Status [ADT] Stat ADT 11/26/19 10:39 Active Ambulate [RC] ASDIRECTED Care 11/25/19 23:08 Active Antiembolic Devices [RC] PER UNIT ROUTINE Care 10/05/20 23:09 Active Cardiac Monitoring [RC] . DIRECTED Care 11/25/19 19:15 Active EKG 12 Lead [EKG Documentation Completion] [RC] STAT Care 11/25/19 18:55 Act galo Oxygen Therapy [RC] PRN Care 11/25/19 23:08 Active Pulse Oximetry [RC] ASDIRECTED Care 11/25/19 19:15 Active RT Post Treatment Assessment [RC] Click to Edit Care 11/25/19 23:24 Active RT Pre-Treatment Assessment [RC] Click to Edit Care 11/25/19 23:24 Active Telemetry Monitoring [Cardiac Monitoring] [RC] Q8H Care 11/25/19 23:11 Active VTE/DVT Education [RC] PER UNIT ROUTINE Care 11/25/19 23:08 Active Vital Signs [RC] Q4H Care 11/25/19 23:08 Active Regular Diet [DIET] Diet 11/26/19 Breakfast Active Acetaminophen [TylenoL] Med 11/25/19 23:08 Active 650 mg PO Q4H PRN Albuterol/Ipratropium [Combivent Respimat] Med 11/25/19 23:23 Active See Dose Instructions INH Q4H PRN Enoxaparin [Lovenox] Med 11/26/19 09:00 Active 40 mg SUBCUT BID Levofloxacin/Dextrose 5%-Water [Levaquin in D5W 750 MG/ Med 11/25/19 23:15 Active 150 ML] 750 mg Premix Bag 1 bag IV Q24H Ondansetron [Zofran] Med 11/25/19 23:08 Active 4 mg IVPUSH Q4H PRN Pantoprazole [ProTONIX IV] Med 11/26/19 09:00 Active 40 mg IV DAILY Remdesivir (Eua) [Remdesivir (EUA)] 100 mg Med 11/27/19 00:00 Active Sodium Chloride 0.9% [Normal Saline] 100 ml IV Q24H Sodium Chloride 0.9% [Saline Flush] Med 11/25/19 19:15 Active 10 ml FLUSH ASDIRECTED PRN Sodium Chloride 0.9% [Saline Flush] Med 11/25/19 19:15 Active 2.5 ml FLUSH ASDIRECTED PRN dexAMETHasone Med 11/25/19 23:15 Active 6 mg PO DAILY Saline Lock Insert [OM.PC] Stat Ot 11/25/19 19:15 Ordered Sequential Compression Device [OM.PC] Per Unit Routine Ot 11/25/19 23:09 Ordered Medication Orders Acetaminophen (Tylenol) 650 mg PO Q4H PRN PRN Reason: Pain (Mild 1-3)/fever Albuterol/Ipratropium (Combivent Respimat) 0 gm INH Q4H PRN PRN Reason: Dyspnea Dexamethasone (Dexamethasone) 6 mg PO DAILY [facility] Last Admin: 11/26/19 08:14 Dose: 6 mg Documented by: Admin: 11/26/19 01:03 Dose: 6 mg Documented by: JOHN Enoxaparin Sodium (Lovenox) 40 mg SUBCUT BID [facility] Last Admin: 11/26/19 08:14 Dose: 40 mg Documented by: ROSALIO Levofloxacin/Dextrose 750 mg/ (Premix) 150 mls @ 100 mls/hr IV Q24H [facility] Last Admin: 11/26/19 00:16 Dose: 100 mls/hr Documented by: UMANG Remdesivir 100 mg/ Sodium (Chloride) 100 mls @ 100 mls/hr IV Q24H [facility] Stop: 11/30/19 00:59 Ondansetron HCl (Zofran) 4 mg IVPUSH Q4H PRN PRN Reason: Nausea/Vomiting Pantoprazole Sodium (Protonix Iv) 40 mg IV DAILY [facility] Last Admin: 11/26/19 08:18 Dose: 40 mg Documented by: ROSALIO Sodium Chloride (Saline Flush) 10 ml FLUSH ASDIRECTED PRN PRN Reason: Keep Vein Open Last Admin: 11/25/19 19:26 Dose: 10 ml Documented by: UMANG Sodium Chloride (Saline Flush) 2.5 ml FLUSH ASDIRECTED PRN PRN Reason: Keep Vein Open Last Admin: 11/25/19 19:25 Dose: 2.5 ml Documented by: UMANG Assessment/Plan Comment:: 79 y/o M admitted for COVID related hypoxia, and pna cont oxygenation via n/c, requiring 5 lts, wean as able start Remdesivir start IV antibiotics, was given levofloxacin, will switch to vancomycin, Zosyn for HCAP, as was in hospital 1 week back start PO dexamethasone start IV lovenox Combivent prn SOB Spoke to family, state that patient wishes not to be on BIPAP if required and they will discuss him being possible comfort care for now patient is full code.
[2019-11-26] MEDS: Aloe Vera/Sodium Chloride Gel 14.1 GM Tube NAS PRN ×2 (13:30→21:24)
[2019-11-26] MEDS: Acetaminophen 325 MG Tab PO PRN (13:36)
[2019-11-26] MEDS ORDERED: Furosemide 40 MG/4 ML VIAL IVPUSH ONE (17:04)
[2019-11-26] MEDS: Albuterol/Ipratropium 4 GM Inhalation Spray INH SCH ×2 (17:33→20:43)
--- NOTE | 2019-11-26 22:01 | PCM.SN.2 ---
- Free Text/Narrative Note: Patient is declining BiPAP, sates he wont be able to tolerate it and doesn't want it anywhere near his face. He is aware he needs it to help with breathing, but still declined. I called patients daughter Malathi, told her we will try high flow, but if he doesn't maintain saturation, we will probably have to intubate him since he is declining NIPPV. Daughter states her dad wants to go home, she is saying she will talk to rest of the family and decide if they will take patient home on palliative care/comfort care measures. update: 10:30 pm Patient on high flow oxygen now , called the daughter, after a long conversation, she being patients POA, based on patients wishes has decided to make patient DNR/DNI. If overnight his oxygen saturation drops on high flow, she wants him to be placed on comfort measures/palliative care. If he remains stable she will rediscussed goals of care in AM
[2019-11-27] MEDS: REMDESIVIR (EUA) 100 MG in Sodium Chloride 0.9% 100 ML IV SCH (00:25)
[2019-11-27] MEDS: Albuterol/Ipratropium 4 GM Inhalation Spray INH SCH ×6 (00:27→21:40)
[2019-11-27 06:31] LABS: BLOOD UREA NITROGEN,BUN 22 mg/dL (7.0-18.0); CARBON DIOXIDE,CO2 27.5 mmol/L (21.0-32.0); CHLORIDE,CL 101 mmol/L (98-107); GLUCOSE RANDOM 99 mg/dL (74-106); POTASSIUM,K 3.5 mmol/L (3.5-5.1); SODIUM,NA 136 mmol/L (136-148)
[2019-11-27] MEDS: Dexamethasone 4 MG Tab PO SCH (09:11)
[2019-11-27] MEDS: Pantoprazole 40 MG Vial IV SCH (09:11)
[2019-11-27] MEDS: Enoxaparin 40 MG/0.4 ML Syringe SUBCUT SCH ×2 (09:13→21:39)
--- NOTE | 2019-11-27 14:47 | PCM.PN ---
- General Info Date of Service: 11/27/19 Admission Dx/Problem (Free Text): Admission Diagnosis/Problem Admission Diagnosis/Problem Hypoxia Subjective Update: seen and examined at bedside, feels the same, his oxygen requirement has improved overnight, spoke to daughter and patient, he is ready to try bipap if needed, but still DNR/DNI. - Review of Systems General: Reports: Weakness, Fatigue, Malaise. Denies: Fever, Chills Pulmonary: Reports: Shortness of Breath, Cough. Denies: Pleuritic Chest Pain, Sputum Gastrointestinal: Denies: Abdominal Pain, Constipation, Decreased Appetite Genitourinary: Denies: Dysuria, Frequency, Burning, Pain Musculoskeletal: Denies: Neck Pain, Shoulder Pain - Patient Data Vitals - Most Recent: Last Vital Signs Temp 36.8 C 11/27/19 12:00 Pulse 82 11/27/19 12:00 Resp 20 11/27/19 12:00 BP 128/62 11/27/19 12:00 Pulse Ox 91 L 11/27/19 12:00 Weight - Most Recent: 97.069 kg I&O - Last 24 Hours: Intake & Output 11/26/19 11/27/19 11/27/19 22:59 06:59 14:59 Intake Total 480 550 Output Total 200 Balance 480 350 Lab Results Last 24 Hours: Laboratory Results - last 24 hr 11/27/19 11/27/19 Range/Units 05:05 05:05 WBC 8.22 (4.0-11.0) K/uL RBC 4.86 (4.50-5.90) M/uL Hgb 14.8 (13.0-17.0) g/dL Hct 43.6 (38.0-50.0) % MCV 89.7 (80.0-98.0) fL MCH 30.5 (27.0-32.0) pg MCHC 33.9 (31.0-37.0) g/dL RDW Std Deviation 44.0 (28.0-62.0) fl RDW Coeff of Shereen 13 (11.0-15.0) % Plt Count 233 (150-400) K/uL MPV 9.70 (7.40-12.00) fL Neut % (Auto) 70.6 (48.0-80.0) % Lymph % (Auto) 19.1 (16.0-40.0) % [place] % (Auto) 10.1 (0.0-15.0) % Eos % (Auto) 0.0 (0.0-7.0) % Baso % (Auto) 0.2 (0.0-1.5) % Neut # (Auto) 5.8 H (1.4-5.7) K/uL Lymph # (Auto) 1.6 (0.6-2.4) K/uL [place] # (Auto) 0.8 (0.0-0.8) K/uL Eos # (Auto) 0.0 (0.0-0.7) K/uL Baso # (Auto) 0.0 (0.0-0.1) K/uL Nucleated RBC % 0.0 /100WBC Nucleated RBCs # 0 K/uL Sodium 136 (136-148) mmol/L Potassium 3.5 (3.5-5.1) mmol/L Chloride 101 (98-107) mmol/L Carbon Dioxide 27.5 (21.0-32.0) mmol/L BUN 22 H (7.0-18.0) mg/dL Creatinine 1.0 (0.8-1.3) mg/dL Est Cr Clr Drug Dosing 60.88 mL/min Estimated GFR (MDRD) > 60.0 ml/min Glucose 99 (74-106) mg/dL Calcium 8.0 L (8.5-10.1) mg/dL Phosphorus 2.5 L (2.6-4.7) mg/dL Magnesium 1.8 (1.8-2.4) mg/dL Total Bilirubin 0.4 (0.2-1.0) mg/dL AST 38 H (15-37) IU/L ALT 52 (14-63) IU/L Alkaline Phosphatase 50 (46-116) U/L Total Protein 6.2 L (6.4-8.2) g/dL Albumin 2.4 L (3.4-5.0) g/dL Globulin 3.8 (2.6-4.0) g/dL Albumin/Globulin Ratio 0.6 L (0.9-1.6) Med Orders - Current: Current Medications Acetaminophen (Tylenol) 650 mg PO Q4H PRN PRN Reason: Pain (Mild 1-3)/fever Last Admin: 11/26/19 13:36 Dose: 650 mg Documented by: Albuterol/Ipratropium (Combivent Respimat) 0 gm INH Q4H [facility] Last Admin: 11/27/19 13:24 Dose: 1 puff Documented by: Dexamethasone (Dexamethasone) 6 mg PO DAILY [facility] Last Admin: 11/27/19 09:11 Dose: 6 mg Documented by: Enoxaparin Sodium (Lovenox) 40 mg SUBCUT BID [facility] Last Admin: 11/27/19 09:13 Dose: 40 mg Documented by: Levofloxacin/Dextrose 750 mg/ (Premix) 150 mls @ 100 mls/hr IV Q24H [facility] Last Admin: 11/26/19 22:19 Dose: 100 mls/hr Documented by: Remdesivir 100 mg/ Sodium (Chloride) 100 mls @ 100 mls/hr IV Q24H [facility] Stop: 11/30/19 00:59 Last Admin: 11/27/19 00:25 Dose: 100 mls/hr Documented by: Ondansetron HCl (Zofran) 4 mg IVPUSH Q4H PRN PRN Reason: Nausea/Vomiting Pantoprazole Sodium (Protonix Iv) 40 mg IV DAILY [facility] Last Admin: 11/27/19 09:11 Dose: 40 mg Documented by: Sodium Chloride (Saline Flush) 10 ml FLUSH ASDIRECTED PRN PRN Reason: Keep Vein Open Last Admin: 11/25/19 19:26 Dose: 10 ml Documented by: Sodium Chloride (Saline Flush) 2.5 ml FLUSH ASDIRECTED PRN PRN Reason: Keep Vein Open Last Admin: 11/25/19 19:25 Dose: 2.5 ml Documented by: Sodium Chloride ([place] Saline Nasal Gel) 0 gm MAGDA ASDIRECTED PRN PRN Reason: Nasal Dryness Last Admin: 11/26/19 21:24 Dose: 1 applic Documented by: Discontinued Medications Albuterol/Ipratropium (Combivent Respimat) 0 gm INH Q4H PRN PRN Reason: Dyspnea Furosemide (Lasix) 20 mg IVPUSH NOW ONE Stop: 11/26/19 17:05 Last Admin: 11/26/19 17:31 Dose: 20 mg Documented by: Remdesivir 200 mg/ Sodium (Chloride) 250 mls @ 250 mls/hr IV ONETIME ONE Stop: 11/25/19 23:20 Last Admin: 11/26/19 01:12 Dose: 250 mls/hr Documented by: Remdesivir 100 mg/ Sodium (Chloride) 100 mls @ 100 mls/hr IV Q24H [facility] Iopamidol (Isovue-370 (76%)) 75 ml IVPUSH ONETIME STA Stop: 11/25/19 20:55 Last Admin: 11/25/19 20:55 Dose: 75 ml Documented by: - Exam Quality Assessment: Supplemental Oxygen General: Alert, Oriented, Cooperative, No Acute Distress Lungs: Clear to Auscultation, Decreased Breath Sounds, Rales Cardiovascular: Regular Rate, Regular Rhythm GI/Abdominal Exam: Normal Bowel Sounds, Soft, Non-Tender Sepsis Event Note - Evaluation Sepsis Screening Result: No Definite Risk - Focused Exam Vital Signs: Vital Signs Temp Pulse Resp BP Pulse Ox 11/27/19 12:00 36.8 C 82 20 128/62 91 L 11/27/19 08:00 36.8 C 72 18 132/65 92 L 11/27/19 04:00 36.7 C 69 18 129/61 95 - Problem List Review Problem List Initiated/Reviewed/Updated: Yes - My Orders Last 24 Hours: My Active Orders 11/26/19 17:02 RT Incentive Spirometry [RC] Q1HWA 11/26/19 17:15 Albuterol/Ipratropium [Combivent Respimat] See Dose Instructions INH Q4H 11/26/19 18:38 BIPAP Adult [RT BiPAP/CPAP] [RC] ASDIRECTED 11/26/19 22:57 Resuscitation Status Routine 11/27/19 00:00 Remdesivir (Eua) [Remdesivir (EUA)] 100 mg Sodium Chloride 0.9% [Normal Saline] 100 ml IV Q24H - Plan Plan:: 79 y/o M admitted for COVID related hypoxia, and pna cont oxygenation via high flow, on 5 lts cont Remdesivir cont levofloxacin, didnt switch to vancomycin, Zosyn as good response to lovoflox start PO dexamethasone cont lovenox Combivent scheduled
[2019-11-27] MEDS ORDERED: LORazepam 2 MG/ML SDV IVPUSH PRN (17:32)
[2019-11-27] MEDS: Levofloxacin/Dextrose 5%-Water 750 MG in Premix Bag 1 BAG IV SCH (23:11)
[2019-11-28] MEDS: REMDESIVIR (EUA) 100 MG in Sodium Chloride 0.9% 100 ML IV SCH (00:45)
[2019-11-28] MEDS: Albuterol/Ipratropium 4 GM Inhalation Spray INH SCH ×6 (00:45→21:14)
[2019-11-28] MEDS: Aloe Vera/Sodium Chloride Gel 14.1 GM Tube NAS PRN ×4 (05:26→16:48)
[2019-11-28 06:20] LABS: BLOOD UREA NITROGEN,BUN 18 mg/dL (7.0-18.0); CARBON DIOXIDE,CO2 25.1 mmol/L (21.0-32.0); CHLORIDE,CL 103 mmol/L (98-107); GLUCOSE RANDOM 93 mg/dL (74-106); POTASSIUM,K 3.5 mmol/L (3.5-5.1); SODIUM,NA 138 mmol/L (136-148)
[2019-11-28] MEDS: Dexamethasone 4 MG Tab PO SCH (08:43)
[2019-11-28] MEDS: Pantoprazole 40 MG Vial IV SCH (08:43)
[2019-11-28] MEDS: Enoxaparin 40 MG/0.4 ML Syringe SUBCUT SCH ×2 (08:44→20:50)
[2019-11-28] MEDS: Acetaminophen 325 MG Tab PO PRN (08:45)
--- NOTE | 2019-11-28 12:34 | PCM.PN ---
- General Info Date of Service: 11/28/19 - Review of Systems Systems Review Comment:: feels the same, reports weakness, shortness of breath. - Patient Data Vitals - Most Recent: Last Vital Signs Temp 36.6 C 11/28/19 08:58 Pulse 88 11/28/19 08:58 Resp 22 H 11/28/19 08:58 BP 101/57 L 11/28/19 08:58 Pulse Ox 89 L 11/28/19 09:24 Weight - Most Recent: 97.069 kg I&O - Last 24 Hours: Intake & Output 11/27/19 11/28/19 11/28/19 22:59 06:59 14:59 Intake Total 750 800 Output Total 680 Balance 70 800 Lab Results Last 24 Hours: Laboratory Results - last 24 hr 11/27/19 11/27/19 11/28/19 Range/Units 16:15 16:15 05:20 WBC 8.83 (4.0-11.0) K/uL RBC 5.03 (4.50-5.90) M/uL Hgb 15.7 (13.0-17.0) g/dL Hct 45.4 (38.0-50.0) % MCV 90.3 (80.0-98.0) fL MCH 31.2 (27.0-32.0) pg MCHC 34.6 (31.0-37.0) g/dL RDW Std Deviation 44.9 (28.0-62.0) fl RDW Coeff of Shereen 14 (11.0-15.0) % Plt Count 272 (150-400) K/uL MPV 9.70 (7.40-12.00) fL Add Manual Diff YES Neutrophils % (Manual) 58 (48.0-80.0) % Band Neutrophils % 6 % Lymphocytes % (Manual) 28 (16.0-40.0) % Monocytes % (Manual) 8 (0.0-15.0) % Nucleated RBC % 0.0 /100WBC Absolute Seg Neuts 5.1 (1.4-5.7) Band Neutrophils # 0.5 Lymphocytes # (Manual) 2.5 H (0.6-2.4) Monocytes # (Manual) 0.7 (0.0-0.8) Nucleated RBCs # 0 K/uL INR 1.22 APTT 31.4 H (18.6-31.3) SEC Sodium (136-148) mmol/L Potassium (3.5-5.1) mmol/L Chloride (98-107) mmol/L Carbon Dioxide (21.0-32.0) mmol/L BUN (7.0-18.0) mg/dL Creatinine (0.8-1.3) mg/dL Est Cr Clr Drug Dosing mL/min Estimated GFR (MDRD) ml/min Glucose (74-106) mg/dL Calcium (8.5-10.1) mg/dL Phosphorus (2.6-4.7) mg/dL Magnesium (1.8-2.4) mg/dL Total Bilirubin (0.2-1.0) mg/dL AST (15-37) IU/L ALT (14-63) IU/L Alkaline Phosphatase (46-116) U/L Total Protein (6.4-8.2) g/dL Albumin (3.4-5.0) g/dL Globulin (2.6-4.0) g/dL Albumin/Globulin Ratio (0.9-1.6) Blood Type A POSITIVE 11/28/19 Range/Units 05:20 WBC (4.0-11.0) K/uL RBC (4.50-5.90) M/uL Hgb (13.0-17.0) g/dL Hct (38.0-50.0) % MCV (80.0-98.0) fL MCH (27.0-32.0) pg MCHC (31.0-37.0) g/dL RDW Std Deviation (28.0-62.0) fl RDW Coeff of Shereen (11.0-15.0) % Plt Count (150-400) K/uL MPV (7.40-12.00) fL Add Manual Diff Neutrophils % (Manual) (48.0-80.0) % Band Neutrophils % % Lymphocytes % (Manual) (16.0-40.0) % Monocytes % (Manual) (0.0-15.0) % Nucleated RBC % /100WBC Absolute Seg Neuts (1.4-5.7) Band Neutrophils # Lymphocytes # (Manual) (0.6-2.4) Monocytes # (Manual) (0.0-0.8) Nucleated RBCs # K/uL INR APTT (18.6-31.3) SEC Sodium 138 (136-148) mmol/L Potassium 3.5 (3.5-5.1) mmol/L Chloride 103 (98-107) mmol/L Carbon Dioxide 25.1 (21.0-32.0) mmol/L BUN 18 (7.0-18.0) mg/dL Creatinine 1.0 (0.8-1.3) mg/dL Est Cr Clr Drug Dosing 60.88 mL/min Estimated GFR (MDRD) > 60.0 ml/min Glucose 93 (74-106) mg/dL Calcium 8.4 L (8.5-10.1) mg/dL Phosphorus 2.3 L (2.6-4.7) mg/dL Magnesium 1.9 (1.8-2.4) mg/dL Total Bilirubin 0.4 (0.2-1.0) mg/dL AST 31 (15-37) IU/L ALT 45 (14-63) IU/L Alkaline Phosphatase 54 (46-116) U/L Total Protein 6.3 L (6.4-8.2) g/dL Albumin 2.4 L (3.4-5.0) g/dL Globulin 3.9 (2.6-4.0) g/dL Albumin/Globulin Ratio 0.6 L (0.9-1.6) Blood Type Med Orders - Current: Current Medications Acetaminophen (Tylenol) 650 mg PO Q4H PRN PRN Reason: Pain (Mild 1-3)/fever Last Admin: 11/28/19 08:45 Dose: 650 mg Documented by: Albuterol/Ipratropium (Combivent Respimat) 0 gm INH Q4H [facility] Last Admin: 11/28/19 09:36 Dose: 1 puff Documented by: Dexamethasone (Dexamethasone) 6 mg PO DAILY [facility] Last Admin: 11/28/19 08:43 Dose: 6 mg Documented by: Enoxaparin Sodium (Lovenox) 40 mg SUBCUT BID [facility] Last Admin: 11/28/19 08:44 Dose: 40 mg Documented by: Levofloxacin/Dextrose 750 mg/ (Premix) 150 mls @ 100 mls/hr IV Q24H [facility] Last Admin: 11/27/19 23:11 Dose: 100 mls/hr Documented by: Remdesivir 100 mg/ Sodium (Chloride) 100 mls @ 100 mls/hr IV Q24H [facility] Stop: 11/30/19 00:59 Last Admin: 11/28/19 00:45 Dose: 100 mls/hr Documented by: Lorazepam (Ativan) 1 mg IVPUSH ONETIME PRN PRN Reason: Anxiety Ondansetron HCl (Zofran) 4 mg IVPUSH Q4H PRN PRN Reason: Nausea/Vomiting Pantoprazole Sodium (Protonix Iv) 40 mg IV DAILY [facility] Last Admin: 11/28/19 08:43 Dose: 40 mg Documented by: Sodium Chloride (Saline Flush) 10 ml FLUSH ASDIRECTED PRN PRN Reason: Keep Vein Open Last Admin: 11/25/19 19:26 Dose: 10 ml Documented by: Sodium Chloride (Saline Flush) 2.5 ml FLUSH ASDIRECTED PRN PRN Reason: Keep Vein Open Last Admin: 11/25/19 19:25 Dose: 2.5 ml Documented by: Sodium Chloride ([place] Saline Nasal Gel) 0 gm MAGDA ASDIRECTED PRN PRN Reason: Nasal Dryness Last Admin: 11/28/19 08:57 Dose: 1 applic Documented by: Discontinued Medications Albuterol/Ipratropium (Combivent Respimat) 0 gm INH Q4H PRN PRN Reason: Dyspnea Furosemide (Lasix) 20 mg IVPUSH NOW ONE Stop: 11/26/19 17:05 Last Admin: 11/26/19 17:31 Dose: 20 mg Documented by: Remdesivir 200 mg/ Sodium (Chloride) 250 mls @ 250 mls/hr IV ONETIME ONE Stop: 11/25/19 23:20 Last Admin: 11/26/19 01:12 Dose: 250 mls/hr Documented by: Remdesivir 100 mg/ Sodium (Chloride) 100 mls @ 100 mls/hr IV Q24H [facility] Iopamidol (Isovue-370 (76%)) 75 ml IVPUSH ONETIME STA Stop: 11/25/19 20:55 Last Admin: 11/25/19 20:55 Dose: 75 ml Documented by: - Exam General: Alert, Oriented Neck: Supple Lungs: Clear to Auscultation, Normal Respiratory Effort Cardiovascular: Regular Rate, Regular Rhythm GI/Abdominal Exam: Soft, Non-Tender, No Distention Skin: Warm, Dry, Intact Neurological: No New Focal Deficit Sepsis Event Note - Evaluation Sepsis Screening Result: No Definite Risk - Focused Exam Vital Signs: Vital Signs Temp Pulse Resp BP Pulse Ox 11/28/19 09:24 89 L 11/28/19 08:58 36.6 C 88 22 H 101/57 L 89 L 11/28/19 06:32 20 90 L 11/28/19 05:28 36.5 C 82 20 124/61 88 L - Problem List Review Problem List Initiated/Reviewed/Updated: Yes - My Orders Last 24 Hours: My Active Orders 11/29/19 05:11 CBC WITH AUTO DIFF [HEME] AM COMPREHENSIVE METABOLIC PN,CMP [CHEM] AM - Plan Plan:: 79 y/o M admitted for COVID related hypoxia, and pna cont oxygenation via high flow, on 5 lts cont Remdesivir cont levofloxacin CCP ordered yesterday, patient consented to its use after given fact sheet and explanation of FDA EUA. He was explained the risks and benefits of therapy including the possibility of making infection worse. He was explained alternative options for COVID treatment.
[2019-11-28] MEDS: Levofloxacin/Dextrose 5%-Water 750 MG in Premix Bag 1 BAG IV SCH (22:56)
[2019-11-29] MEDS: REMDESIVIR (EUA) 100 MG in Sodium Chloride 0.9% 100 ML IV SCH (00:47)
[2019-11-29] MEDS: Albuterol/Ipratropium 4 GM Inhalation Spray INH SCH ×6 (00:47→21:20)
[2019-11-29] MEDS: Aloe Vera/Sodium Chloride Gel 14.1 GM Tube NAS PRN ×5 (01:57→21:20)
[2019-11-29 06:48] LABS: BLOOD UREA NITROGEN,BUN 14 mg/dL (7.0-18.0); CHLORIDE,CL 104 mmol/L (98-107); GLUCOSE RANDOM 94 mg/dL (74-106); POTASSIUM,K 3.5 mmol/L (3.5-5.1); SODIUM,NA 139 mmol/L (136-148)
[2019-11-29] MEDS: Dexamethasone 4 MG Tab PO SCH (08:06)
[2019-11-29] MEDS: Acetaminophen 325 MG Tab PO PRN (08:08)
[2019-11-29] MEDS: Pantoprazole 40 MG Vial IV SCH (08:08)
[2019-11-29] MEDS: Enoxaparin 40 MG/0.4 ML Syringe SUBCUT SCH ×2 (08:10→21:18)
--- NOTE | 2019-11-29 13:38 | PCM.PN ---
- General Info Date of Service: 11/29/19 - Review of Systems Systems Review Comment:: feeling better, shortness of breath has improved. - Patient Data Vitals - Most Recent: Last Vital Signs Temp 36.8 C 11/29/19 12:02 Pulse 83 11/29/19 12:02 Resp 18 11/29/19 12:02 BP 132/75 11/29/19 12:02 Pulse Ox 91 L 11/29/19 12:02 Weight - Most Recent: 97.069 kg I&O - Last 24 Hours: Intake & Output 11/28/19 11/29/19 11/29/19 22:59 06:59 14:59 Intake Total 1282 1050 Balance 1282 1050 Lab Results Last 24 Hours: Laboratory Results - last 24 hr 11/27/19 11/29/19 11/29/19 Range/Units 16:15 05:52 05:52 WBC 6.80 (4.0-11.0) K/uL RBC 4.72 (4.50-5.90) M/uL Hgb 14.5 (13.0-17.0) g/dL Hct 42.4 (38.0-50.0) % MCV 89.8 (80.0-98.0) fL MCH 30.7 (27.0-32.0) pg MCHC 34.2 (31.0-37.0) g/dL RDW Std Deviation 44.7 (28.0-62.0) fl RDW Coeff of Shereen 14 (11.0-15.0) % Plt Count 262 (150-400) K/uL MPV 9.40 (7.40-12.00) fL Neut % (Auto) 63.8 (48.0-80.0) % Lymph % (Auto) 29.0 (16.0-40.0) % [place] % (Auto) 6.8 (0.0-15.0) % Eos % (Auto) 0.0 (0.0-7.0) % Baso % (Auto) 0.4 (0.0-1.5) % Neut # (Auto) 4.3 (1.4-5.7) K/uL Lymph # (Auto) 2.0 (0.6-2.4) K/uL [place] # (Auto) 0.5 (0.0-0.8) K/uL Eos # (Auto) 0.0 (0.0-0.7) K/uL Baso # (Auto) 0.0 (0.0-0.1) K/uL Nucleated RBC % 0.0 /100WBC Nucleated RBCs # 0 K/uL Sodium 139 (136-148) mmol/L Potassium 3.5 (3.5-5.1) mmol/L Chloride 104 (98-107) mmol/L Carbon Dioxide 26.0 (21.0-32.0) mmol/L BUN 14 (7.0-18.0) mg/dL Creatinine 0.8 (0.8-1.3) mg/dL Est Cr Clr Drug Dosing 76.10 mL/min Estimated GFR (MDRD) > 60.0 ml/min Glucose 94 (74-106) mg/dL Calcium 8.2 L (8.5-10.1) mg/dL Total Bilirubin 0.4 (0.2-1.0) mg/dL AST 31 (15-37) IU/L ALT 40 (14-63) IU/L Alkaline Phosphatase 51 (46-116) U/L Total Protein 6.1 L (6.4-8.2) g/dL Albumin 2.3 L (3.4-5.0) g/dL Globulin 3.8 (2.6-4.0) g/dL Albumin/Globulin Ratio 0.6 L (0.9-1.6) Blood Type A POSITIVE Med Orders - Current: Current Medications Acetaminophen (Tylenol) 650 mg PO Q4H PRN PRN Reason: Pain (Mild 1-3)/fever Last Admin: 11/29/19 08:08 Dose: 650 mg Documented by: Albuterol/Ipratropium (Combivent Respimat) 0 gm INH Q4H [facility] Last Admin: 11/29/19 12:35 Dose: 1 puff Documented by: Dexamethasone (Dexamethasone) 6 mg PO DAILY [facility] Last Admin: 11/29/19 08:06 Dose: 6 mg Documented by: Enoxaparin Sodium (Lovenox) 40 mg SUBCUT BID [facility] Last Admin: 11/29/19 08:10 Dose: 40 mg Documented by: Levofloxacin/Dextrose 750 mg/ (Premix) 150 mls @ 100 mls/hr IV Q24H [facility] Last Admin: 10/08/20 22:56 Dose: 100 mls/hr Documented by: Remdesivir 100 mg/ Sodium (Chloride) 100 mls @ 100 mls/hr IV Q24H [facility] Stop: 11/30/19 00:59 Last Admin: 11/29/19 00:47 Dose: 100 mls/hr Documented by: Lorazepam (Ativan) 1 mg IVPUSH ONETIME PRN PRN Reason: Anxiety Ondansetron HCl (Zofran) 4 mg IVPUSH Q4H PRN PRN Reason: Nausea/Vomiting Pantoprazole Sodium (Protonix Iv) 40 mg IV DAILY [facility] Last Admin: 11/29/19 08:08 Dose: 40 mg Documented by: Sodium Chloride (Saline Flush) 10 ml FLUSH ASDIRECTED PRN PRN Reason: Keep Vein Open Last Admin: 11/25/19 19:26 Dose: 10 ml Documented by: Sodium Chloride (Saline Flush) 2.5 ml FLUSH ASDIRECTED PRN PRN Reason: Keep Vein Open Last Admin: 11/25/19 19:25 Dose: 2.5 ml Documented by: Sodium Chloride ([place] Saline Nasal Gel) 0 gm MAGDA ASDIRECTED PRN PRN Reason: Nasal Dryness Last Admin: 11/29/19 07:52 Dose: 1 applic Documented by: Discontinued Medications Albuterol/Ipratropium (Combivent Respimat) 0 gm INH Q4H PRN PRN Reason: Dyspnea Furosemide (Lasix) 20 mg IVPUSH NOW ONE Stop: 11/26/19 17:05 Last Admin: 11/26/19 17:31 Dose: 20 mg Documented by: Remdesivir 200 mg/ Sodium (Chloride) 250 mls @ 250 mls/hr IV ONETIME ONE Stop: 11/25/19 23:20 Last Admin: 11/26/19 01:12 Dose: 250 mls/hr Documented by: Remdesivir 100 mg/ Sodium (Chloride) 100 mls @ 100 mls/hr IV Q24H [facility] Iopamidol (Isovue-370 (76%)) 75 ml IVPUSH ONETIME STA Stop: 11/25/19 20:55 Last Admin: 11/25/19 20:55 Dose: 75 ml Documented by: - Exam General: Alert, Oriented Neck: Supple Lungs: Clear to Auscultation, Normal Respiratory Effort Cardiovascular: Regular Rate, Regular Rhythm GI/Abdominal Exam: Normal Bowel Sounds, Soft, Non-Tender, No Distention Extremities: Non-Tender, No Pedal Edema Skin: Warm, Dry, Intact Neurological: No New Focal Deficit Sepsis Event Note - Evaluation Sepsis Screening Result: No Definite Risk - Focused Exam Vital Signs: Vital Signs Temp Pulse Resp BP Pulse Ox 11/29/19 12:02 36.8 C 83 18 132/75 91 L 11/29/19 07:53 36.5 C 87 20 125/61 88 L 11/29/19 04:09 36.7 C 83 18 131/73 90 L - Problem List Review Problem List Initiated/Reviewed/Updated: Yes - My Orders Last 24 Hours: My Active Orders 11/30/19 05:11 CBC WITH AUTO DIFF [HEME] AM COMPREHENSIVE METABOLIC PN,CMP [CHEM] AM - Plan Plan:: 79 y/o M admitted for COVID related hypoxia, and pna cont oxygenation via high flow, on 2.5 L cont Remdesivir, dexamethason, s/p CCP cont levofloxacin
[2019-11-29] MEDS: Levofloxacin/Dextrose 5%-Water 750 MG in Premix Bag 1 BAG IV SCH (23:53)
[2019-11-30] MEDS: Albuterol/Ipratropium 4 GM Inhalation Spray INH SCH ×4 (01:11→12:50)
[2019-11-30] MEDS: REMDESIVIR (EUA) 100 MG in Sodium Chloride 0.9% 100 ML IV SCH (01:11)
[2019-11-30 06:47] LABS: BLOOD UREA NITROGEN,BUN 16 mg/dL (7.0-18.0); CARBON DIOXIDE,CO2 26.6 mmol/L (21.0-32.0); CHLORIDE,CL 106 mmol/L (98-107); GLUCOSE RANDOM 93 mg/dL (74-106); POTASSIUM,K 3.5 mmol/L (3.5-5.1); SODIUM,NA 140 mmol/L (136-148)
[2019-11-30] MEDS: Pantoprazole 40 MG Vial IV SCH (08:41)
[2019-11-30] MEDS: Dexamethasone 4 MG Tab PO SCH (08:41)
[2019-11-30] MEDS: Enoxaparin 40 MG/0.4 ML Syringe SUBCUT SCH (08:42)
--- NOTE | 2019-11-30 15:45 | PCM.DCSUM1 ---
Discharge Summary - Discharge Data Discharge Date: 11/30/19 Discharge Disposition: Home, Self-Care 01 Condition: Good - Referral to Home Health Primary Care Physician: PCP Unknown - Patient Summary/Data Hospital Course: 79-year-old with a past medical history of COPD on 3 L home oxygen with recent hospitalization for COVID who comes to the emergency department with a chief complaint of shortness of breath, weakness, fatigue, body pains He was found to be requring 5-6 lts of oxygen. CTA showed possible PNA on right side. Patient was treated with convalescent plasma. He was also given remdesivir and Dexamethasone, for five days. Today he is sattting 95% on 3 L NC. He is requesting discharge home. He was discharged home to have follow up with Dalila Crabtree. He was discharged with a Dexamethasone kelly. - Patient Instructions Diet: Regular Diet as Tolerated - Discharge Plan *PRESCRIPTION DRUG MONITORING PROGRAM REVIEWED*: No *COPY OF PRESCRIPTION DRUG MONITORING REPORT IN PATIENT ZAIN: No Prescriptions/Med Rec: dexAMETHasone [Dexamethasone] 2 mg PO DAILY #24 tablet Home Medications: Home Meds Albuterol Sulfate 1 unit NEB QID PRN 01/29/18 [History] Albuterol Sulfate [Proair Hfa] 2 puff INH Q4HR PRN 01/29/18 [History] Aspirin 81 mg PO DAILY 01/29/18 [History] Carboxymethylcellulose Sodium [Refresh Plus 0.5%] 1 drop EYEBOTH TID 01/29/18 [History] Cholecalciferol (Vitamin D3) [Vitamin D3] 2,000 unit PO DAILY 01/29/18 [History] Cyanocobalamin (Vitamin B-12) [B-12 Dots] 500 mcg PO DAILY 01/29/18 [History] Dorzolamide HCl/Timolol Maleat [Cosopt Eye Drops] 1 drop EYEBOTH DAILY 01/29/18 [History] Fluticasone Propion/Salmeterol [Advair 250-50 Diskus] 1 puff INH BID 01/29/18 [History] Folic Acid 1 mg PO DAILY 01/29/18 [History] Furosemide [Lasix] 40 mg PO DAILY 01/29/18 [History] Latanoprost/Pf [Latanoprost 0.005% Eye Drop] 1 drop EYEBOTH BEDTIME 01/29/18 [History] Loratadine/Pseudoephedrine [Loratadine-D 12 Hour Tablet] 1 tab PO DAILY PRN 01/29/18 [History] Lutein 20 mg PO DAILY 01/29/18 [History] Multivitamin [Multi-Vitamin Daily] 1 each PO DAILY 01/29/18 [History] [place]-3 Fatty Acids/DHA/EPA [[place]-3 Softgel] 1 cap PO BID 01/29/18 [History] Potassium Chloride [Klor-Con M20] 20 meq PO DAILY 01/29/18 [History] Tiotropium [Spiriva HandiHaler] 18 mcg INH DAILY 01/29/18 [History] Vitamin E 400 unit PO DAILY 01/29/18 [History] Zolpidem [Ambien] 10 mg PO BEDTIME PRN 01/29/18 [History] guaiFENesin [Mucinex] 600 mg PO DAILY PRN 01/29/18 [History] Finasteride [Proscar] 5 mg PO DAILY 11/18/19 [History] Roflumilast [Daliresp] 500 mcg PO DAILY 11/18/19 [History] Tamsulosin HCl 0.4 mg PO DAILY 11/18/19 [History] Lutein/Minerals/Vit A,C & E [Ocuvite] 1 tab PO DAILY 11/25/19 [History] dexAMETHasone [Dexamethasone] 2 mg PO DAILY #24 tablet 11/30/19 [Rx] Oxygen Therapy Mode: Nasal Cannula Oxygen Flow Rate (L/min): 3 Patient Handouts: COVID-19 Frequently Asked Questions, COVID-19, COVID-19: How to Protect Yourself and Others - CDC, Coronavirus Information 05/06/19, Dexamethasone tablets, Prevent the Spread of COVID-19 if You Are Sick - [facility] Referrals: Dalila Cortez PA [Physician Operating Systems Programmer] - 12/06/19 2:45 pm - Discharge Summary/Plan Comment DC Time >30 min.: No - Patient Data Vitals - Most Recent: Last Vital Signs Temp 36.8 C 11/30/19 12:00 Pulse 82 11/30/19 12:00 Resp 18 11/30/19 12:00 BP 140/78 11/30/19 12:00 Pulse Ox 91 L 11/30/19 12:00 Weight - Most Recent: 97.069 kg I&O - Last 24 hours: Intake & Output 11/30/19 11/30/19 11/30/19 06:59 14:59 22:59 Intake Total 520 Balance 520 Lab Results - Last 24 hrs: Laboratory Results - last 24 hr 11/30/19 11/30/19 Range/Units 06:08 06:08 WBC 7.37 (4.0-11.0) K/uL RBC 4.70 (4.50-5.90) M/uL Hgb 14.2 (13.0-17.0) g/dL Hct 42.3 (38.0-50.0) % MCV 90.0 (80.0-98.0) fL MCH 30.2 (27.0-32.0) pg MCHC 33.6 (31.0-37.0) g/dL RDW Std Deviation 44.5 (28.0-62.0) fl RDW Coeff of Shereen 13 (11.0-15.0) % Plt Count 301 (150-400) K/uL MPV 9.20 (7.40-12.00) fL Neut % (Auto) 59.0 (48.0-80.0) % Lymph % (Auto) 32.3 (16.0-40.0) % [place] % (Auto) 7.7 (0.0-15.0) % Eos % (Auto) 0.3 (0.0-7.0) % Baso % (Auto) 0.7 (0.0-1.5) % Neut # (Auto) 4.4 (1.4-5.7) K/uL Lymph # (Auto) 2.4 (0.6-2.4) K/uL [place] # (Auto) 0.6 (0.0-0.8) K/uL Eos # (Auto) 0.0 (0.0-0.7) K/uL Baso # (Auto) 0.1 (0.0-0.1) K/uL Nucleated RBC % 0.0 /100WBC Nucleated RBCs # 0 K/uL Sodium 140 (136-148) mmol/L Potassium 3.5 (3.5-5.1) mmol/L Chloride 106 (98-107) mmol/L Carbon Dioxide 26.6 (21.0-32.0) mmol/L BUN 16 (7.0-18.0) mg/dL Creatinine 0.8 (0.8-1.3) mg/dL Est Cr Clr Drug Dosing 76.10 mL/min Estimated GFR (MDRD) > 60.0 ml/min Glucose 93 (74-106) mg/dL Calcium 8.2 L (8.5-10.1) mg/dL Total Bilirubin 0.5 (0.2-1.0) mg/dL AST 32 (15-37) IU/L ALT 41 (14-63) IU/L Alkaline Phosphatase 50 (46-116) U/L Total Protein 5.8 L (6.4-8.2) g/dL Albumin 2.3 L (3.4-5.0) g/dL Globulin 3.5 (2.6-4.0) g/dL Albumin/Globulin Ratio 0.7 L (0.9-1.6) Med Orders - Current: Current Medications Acetaminophen (Tylenol) 650 mg PO Q4H PRN PRN Reason: Pain (Mild 1-3)/fever Last Admin: 11/29/19 08:08 Dose: 650 mg Documented by: Albuterol/Ipratropium (Combivent Respimat) 0 gm INH Q4H [facility] Last Admin: 11/30/19 12:50 Dose: 1 puff Documented by: Dexamethasone (Dexamethasone) 6 mg PO DAILY [facility] Last Admin: 11/30/19 08:41 Dose: 6 mg Documented by: Enoxaparin Sodium (Lovenox) 40 mg SUBCUT BID [facility] Last Admin: 11/30/19 08:42 Dose: 40 mg Documented by: Levofloxacin/Dextrose 750 mg/ (Premix) 150 mls @ 100 mls/hr IV Q24H [facility] Last Admin: 11/29/19 23:53 Dose: 100 mls/hr Documented by: Lorazepam (Ativan) 1 mg IVPUSH ONETIME PRN PRN Reason: Anxiety Last Admin: 11/30/19 02:10 Dose: 1 mg Documented by: Ondansetron HCl (Zofran) 4 mg IVPUSH Q4H PRN PRN Reason: Nausea/Vomiting Pantoprazole Sodium (Protonix Iv) 40 mg IV DAILY [facility] Last Admin: 11/30/19 08:41 Dose: 40 mg Documented by: Sodium Chloride (Saline Flush) 10 ml FLUSH ASDIRECTED PRN PRN Reason: Keep Vein Open Last Admin: 11/25/19 19:26 Dose: 10 ml Documented by: Sodium Chloride (Saline Flush) 2.5 ml FLUSH ASDIRECTED PRN PRN Reason: Keep Vein Open Last Admin: 11/25/19 19:25 Dose: 2.5 ml Documented by: Sodium Chloride ([place] Saline Nasal Gel) 0 gm MAGDA ASDIRECTED PRN PRN Reason: Nasal Dryness Last Admin: 11/29/19 21:20 Dose: 1 applic Documented by: Discontinued Medications Albuterol/Ipratropium (Combivent Respimat) 0 gm INH Q4H PRN PRN Reason: Dyspnea Furosemide (Lasix) 20 mg IVPUSH NOW ONE Stop: 11/26/19 17:05 Last Admin: 11/26/19 17:31 Dose: 20 mg Documented by: Remdesivir 200 mg/ Sodium (Chloride) 250 mls @ 250 mls/hr IV ONETIME ONE Stop: 11/25/19 23:20 Last Admin: 11/26/19 01:12 Dose: 250 mls/hr Documented by: Remdesivir 100 mg/ Sodium (Chloride) 100 mls @ 100 mls/hr IV Q24H [facility] Remdesivir 100 mg/ Sodium (Chloride) 100 mls @ 100 mls/hr IV Q24H [facility] Stop: 11/30/19 00:59 Last Admin: 11/30/19 01:11 Dose: 100 mls/hr Documented by: Iopamidol (Isovue-370 (76%)) 75 ml IVPUSH ONETIME [facility]A Stop: 11/25/19 20:55 Last Admin: 11/25/19 20:55 Dose: 75 ml Documented by:
[2019-11-30 17:57] VITALS: BP 132/58; PULSE 68
== END 2019-11-30 17:45 | disposition home or self-care (01) | DRG 177 ==
LOC: MW.ED 18:51 → MW.MS 22:58 → OBSVTOIN 11-26 10:39 → MW.MS 11-28 15:23
PROVIDERS: ADMIT Student in an Organized Health Care Education/Training Program; ATTEND Student in an Organized Health Care Education/Training Program
PROC: XW033E5 Introduction of Remdesivir Anti-infective into Peripheral Vein, Percutaneous Approach, New Technology Group 5 (ICD-10-PCS; principal; 2019-11-25)
PROC: XW13325 Transfusion of Convalescent Plasma (Nonautologous) into Peripheral Vein, Percutaneous Approach, New Technology Group 5 (ICD-10-PCS; 2019-11-25)
DX: U07.1 COVID-19 (principal); J12.89 Other viral pneumonia; J44.0 Chronic obstructive pulmonary disease with (acute) lower respiratory infection; J96.01 Acute respiratory failure with hypoxia; Z88.0 Allergy status to penicillin; H54.7 Unspecified visual loss; H40.9 Unspecified glaucoma; J44.9 Chronic obstructive pulmonary disease, unspecified; M54.9 Dorsalgia, unspecified; M54.30 Sciatica, unspecified side; G89.29 Other chronic pain; Z98.890 Other specified postprocedural states; Z66 Do not resuscitate; Z51.5 Encounter for palliative care; Z79.82 Long term (current) use of aspirin; Z79.899 Other long term (current) drug therapy; Z98.49 Cataract extraction status, unspecified eye; Z90.49 Acquired absence of other specified parts of digestive tract; Z87.891 Personal history of nicotine dependence; Z99.81 Dependence on supplemental oxygen
CPT/HCPCS: 36415; 71045; 71275; 80053 ×2; 83735; 84100; 84484; 85025 ×2; 85379; 85610; 93005; C9113; J1650; J1956; J7050; J8540 ×2; Q9967; U0002; 36430; 85730; 86900; 86901; 94640; 94660; 99221; 99231; 99232; 99238; 99284; A9270-GY; J1940; J2060; P9017

== ENCOUNTER 2021-10-20 23:42 | Emergency (ER) | payer MEDICARE, OTHER ==
[2021-10-21] MEDS ORDERED: Tranexamic Acid 1,000 MG in Sodium Chloride 0.9% 100 ML IV ONE (00:52)
[2021-10-21] MEDS ORDERED: Tranexamic Acid 1,000 MG/10 ML Vial ONE ×2 (00:55→01:19)
[2021-10-21] MEDS: Lidocaine 1% with EPINEPHrine 1:100,000 50 ML MDV ONE ×2 (01:22→01:32)
[2021-10-21] MEDS ORDERED: Lidocaine 1% with EPINEPHrine 1:100,000 20 ML MDV INJECT ONE (01:23)
[2021-10-21] MEDS ORDERED: Octyl 2-Cyanoacrylate 1 g/1 mL 1 APPLIC PEN TOP ONE (01:53)
[2021-10-21 02:15] VITALS: BP 123/74; PULSE 88
== END 2021-10-21 02:10 | disposition home or self-care (01) ==
LOC: MW.ED 23:42
DX: D18.01 Hemangioma of skin and subcutaneous tissue (principal); S01.81XA Laceration without foreign body of other part of head, initial encounter; Z79.82 Long term (current) use of aspirin; Z79.899 Other long term (current) drug therapy; Z88.0 Allergy status to penicillin; W26.8XXA Contact with other sharp object(s), not elsewhere classified, initial encounter
CPT/HCPCS: 12011; 99282; 99283; J3490

== ENCOUNTER 2024-10-28 15:34 | Emergency (ER) | payer MEDICARE, OTHER ==
[2024-10-28 16:12] LABS: BASOPHILS ABSOLUTE AUTO 0.03 K/uL (0.00-0.20); BASOPHILS PERCENT AUTO 0.3 % (0.0-1.0); EOSINOPHILS ABSOLUTE AUTO 0.12 K/uL (0.00-0.45); EOSINOPHILS PERCENT AUTO 1.3 % (0.0-6.0); IMMATURE GRAN ABSOLUTE AUTO 0.03 K/uL (0.00-0.05); IMMATURE GRAN PERCENT AUTO 0.3 % (0.0-0.4); LYMPHOCYTES ABSOLUTE AUTO 2.09 K/uL (1.00-4.80); LYMPHOCYTES PERCENT AUTO 22.4 % (24.0-44.0); MEAN PLATELET VOLUME 8.2 fL (9.4-12.4); MONOCYTES ABSOLUTE AUTO 0.70 K/uL (0.00-0.80); MONOCYTES PERCENT AUTO 7.5 % (0.0-8.0); NEUTROPHILS ABSOLUTE AUTO 6.38 K/uL (1.80-7.70); NEUTROPHILS PERCENT AUTO 68.2 % (41.0-71.0); NRBC ABSOLUTE 0.00 K/uL (0.00-0.02); NRBC PERCENT 0.0 /100WBC (0.0-0.2); PLATELET COUNT,PLT 317 K/uL (150-400); RED BLOOD CELL COUNT 3.98 M/uL (4.52-5.90); WHITE BLOOD CELL COUNT,WBC 9.35 K/uL (3.9-11.3)
[2024-10-28 16:38] LABS: A/G RATIO 0.7 (0.9-1.6); ALANINE AMINOTRANSFERASE,ALT 17 IU/L (14-63); ASPARTATE AMNIOTRANSFERASE,AST 18 IU/L (15-37); BILIRUBIN TOTAL 0.5 mg/dL (0.2-1.0); BLOOD UREA NITROGEN,BUN 12 mg/dL (7.0-18.0); CARBON DIOXIDE,CO2 28.7 mmol/L (21.0-32.0); CHLORIDE,CL 99 mmol/L (98-107); CREATININE 0.8 mg/dL (0.8-1.3); GLUCOSE RANDOM 107 mg/dL (74-106); POTASSIUM,K 4.2 mmol/L (3.5-5.1); PROTEIN TOTAL,TP 7.3 g/dL (6.4-8.2); SODIUM,NA 136 mmol/L (136-148)
[2024-10-28 16:42] LABS: ESTIMATED GFR 88 mL/min (>60)
[2024-10-28] MEDS: Ketorolac 30 MG/ML SDV IM ONE (18:36)
[2024-10-28 18:38] VITALS: BP 155/69; PULSE 89
== END 2024-10-28 18:41 | disposition home or self-care (01) ==
LOC: MW.ED 15:34
DX: M19.072 Primary osteoarthritis, left ankle and foot (principal); G89.29 Other chronic pain; J44.9 Chronic obstructive pulmonary disease, unspecified; Z75.3 Unavailability and inaccessibility of health-care facilities; Z79.899 Other long term (current) drug therapy; Z88.0 Allergy status to penicillin; Z79.51 Long term (current) use of inhaled steroids; Z79.82 Long term (current) use of aspirin; Z86.16 Personal history of COVID-19; Z90.49 Acquired absence of other specified parts of digestive tract; Z87.891 Personal history of nicotine dependence
CPT/HCPCS: 36415; 80053; 84550; 85025; 96372; 99283; J1885; 99284